=== PATIENT | female | born 1990 | race Caucasian/White ===

== ENCOUNTER → 2018-06-30 16:22 | Outpatient (CLI) | payer OTHER, SELFPAY ==
[2018-06-30 17:22] LABS: C-Reactive Protein Quant 0.8 mg/dL (<1.0)
[2018-06-30 17:29] LABS: Erythrocyte Sedimentation Rate 5 MM/HR (0-20)
== END ==
PROVIDERS: PCP Family Medicine; Visit Provider Family Medicine
DX: R51 Headache (principal)
CPT/HCPCS: 36415; 85651; 86140

== ENCOUNTER → 2018-07-11 16:12 | Outpatient (CLI) | payer OTHER, SELFPAY ==
--- NOTE | 2018-07-11 16:15 | DI.MRI.S_ITS ---
PROCEDURE: MR HEAD/BRAIN WO/W CON INDICATIONS: HEADACHES TECHNIQUE: Noncontrast axial T1 spin echo, axial T2 fast spin echo, sagittal and axial FLAIR, coronal T2 fast spin echo, axial gradient echo, axial diffusion and ADC through the brain. After the administration of contrast, axial and coronal 3D VIBE or T1 spin echo with fat saturation through the brain. COMPARISON: None. FINDINGS: Image quality: Excellent. CSF Spaces: Basal cisterns are patent. No extra-axial fluid collections. Ventricles are normal in size and shape. Brain: No midline shift. No intracranial bleeds or masses. No abnormal intracranial enhancement. The brainstem appears normal. Diffusion-weighted images demonstrate no acute ischemic insults. No chronic ischemic insults. Normal intravascular flow voids are present. Skull and face: Calvarial marrow is normal in signal. Orbits appear normal. Sinuses: Sinuses and mastoids appear clear. IMPRESSION: 1. No acute intracranial process. Dictated by: Elinor Zamora M.D. on 07/11/2018 at 16:55 Approved by: Elinor Zamora M.D. on 07/11/2018 at 16:58
== END ==
PROVIDERS: PCP Family Medicine; Visit Provider Family Medicine
DX: R51 Headache (principal)
CPT/HCPCS: 70553

== ENCOUNTER → 2019-07-12 07:29 | Outpatient (CLI) | payer OTHER, SELFPAY ==
--- NOTE | 2019-07-12 | DI.US.S_ITS ---
PROCEDURE: US ABDOMEN COMPLETE INDICATIONS: PAIN TECHNIQUE: Real-time scanning was performed of the abdominal and retroperitoneal organs, with image documentation. COMPARISON: None. FINDINGS: Liver: Liver is normal in size and homogeneous in echotexture. Gallbladder: No gallstones identified. Normal gallbladder wall. No pericholecystic fluid. Negative sonographic Maharaj sign. Biliary ducts: Intrahepatic bile ducts are non-dilated. Extrahepatic bile duct caliber measures 3.2 mm. Normal is 6-7 mm or less in diameter, or 10 mm or less post-cholecystectomy. Pancreas: Visualized portions of the pancreas are sonographically normal. Spleen: Spleen is normal in size and homogeneous in echotexture. Kidneys: Kidneys are normal in size and echotexture. Right kidney measures 11.8 cm long; left kidney measures 11.8 cm long. No hydronephrosis. 5 mm nonobstructing mid pole right renal calcification. No solid masses. Aorta: Visualized aorta is normal in caliber at less than 3 cm. Iliacs: Proximal common iliac arteries are normal in caliber at less than 2.5 cm. IVC: Intrahepatic inferior vena cava is patent. Miscellaneous: No free abdominal fluid. IMPRESSION: 1. 5 mm nonobstructing right renal calcification; otherwise no source for abdominal pain identified. Dictated by: Shawn Warner RRA Interpreted: Dena Carroll MD on 07/13/2019 at 9:25 Approved by: Dena Carroll MD, PhD on 07/13/2019 at 9:55
== END ==
PROVIDERS: PCP Family Medicine; Visit Provider Family Medicine
DX: R10.9 Unspecified abdominal pain (principal); N20.0 Calculus of kidney
CPT/HCPCS: 76700

== ENCOUNTER → 2020-06-07 11:26 | Outpatient (CLI) | payer OTHER, SELFPAY ==
--- NOTE | 2020-06-07 | DI.US.S_ITS ---
PROCEDURE: US OB <= 14 WEEKS FETUS INDICATIONS: INITIAL SIZING AND DATING OUTSIDE/PRIOR DATING DATA: Last menstrual period (LMP): Not available. LMP-based estimated date of delivery (ANDREW): Not available . First dating scan (date and location): This study, 06/07/20 . Estimated date of delivery (ANDREW) from first dating scan: 01/23/21 . TECHNIQUE: Real-time scanning was performed of the fetus and maternal pelvic organs, with image documentation. Endovaginal scanning was also performed to better visualize the fetus and maternal ovaries. COMPARISON: None. FINDINGS: Embryo: [place]-rump length 1 cm, correlated with a gestational age of 7 weeks 1 day. Measurement variability in dating: +/- 4 weeks by LMP, +/- 7 days by mean sac diameter (use before 6 weeks gestation if crown-rump length not able to be measured), +/- 5 days by crown-rump length (up to 8 weeks 6 days gestation), +/- 7 days by crown-rump length (up to 13 weeks 6 days gestation). Heart rate is normal at 149 beats per minute. Maternal organs: Ovaries normal considering gestational status. Limited images through the kidneys demonstrate no hydronephrosis. IMPRESSION: 7 week 1 day gestational age with delivery date projected to be centered on 01/23/21. Follow-up anatomic survey is recommended at 20 weeks gestation. Dictated by: Jean Claude Tony M.D. on 06/07/2020 at 13:29 Approved by: Jean Claude Tony M.D. on 06/07/2020 at 13:32
== END ==
PROVIDERS: PCP Family Medicine; Referring Provider Family Medicine; Visit Provider Family Medicine
DX: Z36.87 Encounter for antenatal screening for uncertain dates (principal); Z3A.01 Less than 8 weeks gestation of pregnancy
CPT/HCPCS: 76801

== ENCOUNTER → 2020-07-22 15:43 | Outpatient (CLI) | payer OTHER, SELFPAY ==
--- NOTE | 2020-07-22 | DI.US.S_ITS ---
PROCEDURE: US OB <= 14 WEEKS FETUS INDICATIONS: VAGINAL BLEEDING OUTSIDE/PRIOR DATING DATA: Last menstrual period (LMP): Not available. LMP-based estimated date of delivery (ANDREW): Not available . First dating scan (date and location): 06/07/20 . Estimated date of delivery (ANDREW) from first dating scan: 01/23/21 . TECHNIQUE: Real-time scanning was performed of the fetus and maternal pelvic organs, with image documentation. Endovaginal scanning was also performed to better visualize the fetus and maternal ovaries. COMPARISON: [facility], OB <= 14 WEEKS FETUS, 06/07/2020, 11:54. FINDINGS: Embryo: The fetus shows appropriate interval growth with current estimated gestational age of 13 weeks 3 days and with cardiac activity of 169 beats per minute. The placenta appears fundal. No placental abruption or abnormality at the cervix is found with a cervical length normal at 3.8 cm. Measurement variability in dating: +/- 4 weeks by LMP, +/- 7 days by mean sac diameter (use before 6 weeks gestation if crown-rump length not able to be measured), +/- 5 days by crown-rump length (up to 8 weeks 6 days gestation), +/- 7 days by crown-rump length (up to 13 weeks 6 days gestation). Maternal organs: Ovaries appear normal considering gestational status . Limited images through the kidneys demonstrate no hydronephrosis. IMPRESSION: Source of vaginal bleeding is not seen. cardiac activity is observed and no placenta previa or evidence of placental abruption is found. A perigestational hemorrhage is not seen. Dictated by: Jean Claude Tony M.D. on 07/22/2020 at 16:41 Approved by: Jean Claude Tony M.D. on 07/22/2020 at 16:43
== END ==
PROVIDERS: PCP Family Medicine; Referring Provider Family Medicine; Visit Provider Family Medicine
DX: O20.9 Hemorrhage in early pregnancy, unspecified (principal); Z3A.13 13 weeks gestation of pregnancy
CPT/HCPCS: 76801; 76817

== ENCOUNTER → 2020-09-02 14:03 | Outpatient (CLI) | payer OTHER, SELFPAY ==
--- NOTE | 2020-09-02 | DI.US.S_ITS ---
PROCEDURE: US OB >= 14 WEEKS FETUS INDICATIONS: ANATOMY SCAN OUTSIDE/PRIOR DATING DATA: Last menstrual period (LMP): Not available. LMP-based estimated date of delivery (ANDREW): Not available . First dating scan (date and location): 06/07/20 . Estimated date of delivery (ANDREW) from first dating scan: 01/23/21 . TECHNIQUE: Real-time scanning was performed of the fetus, with image documentation and biometric measurements. Endovaginal scanning: Not needed COMPARISON: None. FINDINGS: General: A single living intrauterine gestation is present. Presentation: Vertex. Placenta: Placental position is left fundal , without previa. Amniotic fluid index: 15.2 cm, normal range is 5-24 cm. heart rate: 155 beats per minute. Maternal cervical canal: 3.2 cm long. Normal lower limit is 2.5 cm. biometrics: Biparietal diameter: 4.5 cm, 19 weeks 5 days Head circumference: 7.9 cm, 20 weeks 2 days Abdominal circumference: 15.0 cm, 20 weeks 3 days Femur length: 3.1 cm, 19 weeks 3 days Estimated gestational age from initial scan: 19 weeks 4 days Composite gestational age from present scan: 20 weeks 0 days Estimated weight and percentile: 320 g, 65th percentile Measurement variability for biometric dating: +/- 7 days from 14 weeks to 15 weeks 6 days gestation, +/- 10 days from 16 weeks to 21 weeks 6 days gestation, +/- 2 weeks from 22 weeks to 27 weeks 6 days gestation, +/- 3 weeks for 28 weeks gestation or later. weight reference: 4500 g or EFW >90/95% is considered macrosomia or large for gestational age. EFW <10% is small for gestational age. EFW 5% or less is considered intra-uterine growth restriction. Anatomic survey: Neuro: Ventricles are non-dilated at less than 10 mm. Cisterna magna is normal at 3-11 mm. Cerebellum is normal in size and morphology. Nuchal skin fold: Normal at less than 6 mm between 14-21 weeks gestational age. Face: Nose and lips, facial profile are normal. Spine: No evidence for spina bifida. Heart: 4-chambered heart is present, with normal ventricular outflow tracts. Diaphragm: Diaphragm is intact. Stomach: Left-sided stomach is present. Kidneys: No hydronephrosis. Normal is less than 5 mm in 2nd trimester, less than 7 mm in 3rd trimester. Cord: 3-vessel cord has orthotopic insertion. Bladder: Normal in size. Extremities: All 4 extremities identified. IMPRESSION: Appropriate interval growth, no anomaly seen. The delivery date is projected to be centered on 01/23/21. Dictated by: Jean Claude Tony M.D. on 09/02/2020 at 16:03 Approved by: Jean Claude Tony M.D. on 09/02/2020 at 16:06
== END ==
PROVIDERS: PCP Family Medicine; Referring Provider Family Medicine; Visit Provider Family Medicine
DX: Z36.89 Encounter for other specified antenatal screening (principal); Z3A.20 20 weeks gestation of pregnancy
CPT/HCPCS: 76811

== ENCOUNTER → 2020-12-23 16:14 | Outpatient (ROUT) | payer OTHER, SELFPAY | PROVIDERS: PCP Family Medicine; Visit Provider Family Medicine | DX: Z34.90 Encounter for supervision of normal pregnancy, unspecified, unspecified trimester (principal) | CPT/HCPCS: 87081 ==

== ENCOUNTER 2021-01-20 07:22 | Inpatient (IN) | payer OTHER, SELFPAY ==
--- NOTE | 2021-01-20 08:10 | PM.OBHP.1 ---
OB HPI Date/Time Date of admission: 01/20/21 Date Patient Seen: 01/20/21 Time Patient Seen: 08:11 History of Present Condition Chief complaint: LABOR : 2 Para: 1 Estimated Date of Delivery: 01/23/21 Estimated Gestational Age (weeks): 39 4/7 Narrative: Mara Valdovinos is a 30 year old female with EDC of 520 with good dates. Early care. No major issues. Lab work was all within normal limits. Patient has the last 2 weeks had increasing blood pressure and increasing weight. Preeclampsia labs have been all normal. Patient has been on bed breast the last 10 days. Baby has been moving good. Growth has been good. No other major issues. She has not had any symptoms or complaints. Patient has had intermittent contractions but nothing specific. No leaking fluid no bleeding. She is being brought in today for induction for increasing blood pressure but no other changes. Indications Indication for induction OB: medical complication History of Present care: good care Dating criteria: LMP confirmed by 1st trimester US Ultrasounds: normal mid trimester US Obstetrical complications: gestational hypertension Medical complications: none Preadmission Labs Blood type: O (+) positive -: Antibody screen: negative, Cystic fibrosis screen: unknown, GBS status: negative, HBsAG: negative, HIV: negative, HSV 1: negative, HSV 2: negative and RPR/VDLR: negative -: Chlamydia screen: not detected and Gonorrhea screen: not detected -: Rubella: immune and Varicella: immune HCT: 36 HCAB: negative PAP: Normal Cell-free DNA: Normal male 1 hr GTT: 113 Prior (ies) History: [id number] weeks and SCD 8 hour labor epidural female 6 lb Evaluation Evaluation Baseline heart rate: 140 Status: Category l Cervical dilation (cm): 3 Cervical effacement (%): 80 station: -1 [facility] Social History Smoking Status: Never smoker Meds Home Medications and Allergies Home Medications Medication Instructions Recorded Confirmed Type Complete 1 tab PO DAILY 01/20/21 01/20/21 History lansoprazole 30 mg PO BID 01/20/21 01/20/21 History Allergies Allergy/AdvReac Type Severity Reaction Status Date / Time Sulfa (Sulfonamide Allergy Unknown Verified 01/20/21 07:51 Antibiotics) Exam Vital Signs (past 8 hours): Alert female no acute distress lungs are clear. Heart regular rate and rhythm. Gravid. Vertex. Estimated weight 8 lb. Extremities normal neurologic exam unremarkable no edema Assessment and Plan Assessment and Plan Assessment and Plan narrative: 394 7th week intrauterine see with history of gestational hypertension overall doing well. Here for induction. Will rupture and start Pitocin. Epidural when interested. Prepare for vaginal delivery
[2021-01-20] MEDS: LACTATED RINGERS 1,000 ML 125 ML IV (08:15)
--- NOTE | 2021-01-20 08:29 | P.PCN_ITS ---
Procedures Date/Time Date of procedure: 01/20/21 Time of procedure: 08:29 General Procedure description: After oral consent was given, AROM was undertaken without complications. Clear fluid. Patient tolerated well. heart monitor con tinues to be category 1 Complications: none
[2021-01-20] MEDS: OXYTOCIN PREMIX 30 UNIT/500 ML PLAST..BAG IV (08:44)
[2021-01-20 08:52] LABS: Add Manual Diff / Slide Review NO; Basophils Absolute Auto 100 /uL (0-100); Basophils Percent Auto 0.5 % (0-2); Eosinophils Absolute Auto 100 /uL (0-450); Eosinophils Percent Auto 0.6 % (2-4); Hematocrit 36.1 % (36-46); Hemoglobin 12.4 g/dL (12.0-16.0); Lymphocytes Absolute Auto 2900 /uL (1100-4500); Mean Corpuscular HGB Conc 34.4 % (30-36); Mean Corpuscular Hemoglobin 31.6 PG (26-34); Mean Corpuscular Volume 91.9 fL (80-100); Monocytes Absolute Auto 900 /uL (0-900); Monocytes Percent Auto 7.7 % (3-14); Neutrophils Absolute Auto 7700 /uL (1500-7000); Neutrophils Percent Auto 66.2 % (50-75); Platelet Count 183 X10^3/uL (150-400); Red Blood Cell Count 3.93 X10^6/uL (4.0-5.2); Red Cell Distribution Width 14.4 % (11.6-14.8); White Blood Cell Count 11.6 X10^3/uL (4.5-11.0)
[2021-01-20 09:18] LABS: COVID19 - ADMIT (NP swab/PCR) Negative (Negative)
[2021-01-20 09:28] LABS: Add Manual Diff / Slide Review NO; Basophils Absolute Auto 100 /uL (0-100); Basophils Percent Auto 0.6 % (0-2); Eosinophils Absolute Auto 100 /uL (0-450); Eosinophils Percent Auto 0.5 % (2-4); Hematocrit 36.4 % (36-46); Hemoglobin 12.5 g/dL (12.0-16.0); Lymphocytes Absolute Auto 2800 /uL (1100-4500); Lymphocytes Percent Auto 23.9 % (25-40); Mean Corpuscular HGB Conc 34.3 % (30-36); Mean Corpuscular Hemoglobin 31.6 PG (26-34); Mean Corpuscular Volume 92.2 fL (80-100); Monocytes Absolute Auto 900 /uL (0-900); Monocytes Percent Auto 7.6 % (3-14); Neutrophils Absolute Auto 7900 /uL (1500-7000); Neutrophils Percent Auto 67.4 % (50-75); Platelet Count 190 X10^3/uL (150-400); Red Blood Cell Count 3.95 X10^6/uL (4.0-5.2); Red Cell Distribution Width 14.6 % (11.6-14.8); White Blood Cell Count 11.8 X10^3/uL (4.5-11.0)
[2021-01-20 11:23] VITALS: BP 138/86
--- NOTE | 2021-01-20 12:52 | PM.OBPRVD ---
Events: Induced HTN Labor & Delivery Delivery date: 01/20/21 Cervical ripening method: none Induction method: AROM Delivery augmentation: pitocin Delivery monitor: external FHT Route of delivery: L&D Laceration Description: Perineal - 2nd Degree Delivery repair: chromic Estimated blood loss (mL): 200 Anesthesia Type: Local Narrative: Patient was brought in for elevated blood pressure her blood pressure during labor was mildly elevated but nothing significant. She was feeling well. Having no contractions on leaking fluid no bleeding no pain. Good movement. She had rupture of membranes with clear fluid. No other changes. heart monitor was category 1 throughout the entire labor process. She had Pitocin began and was very comfortable throughout the course of for stage. She then was found to be complete and +2. Second-stage began and was very rapid 3 pushes. Baby delivered OA over second-degree midline tear. Nuchal cord x1 which was slipped. Baby then delivered up onto the abdomen. Slightly shocky but no resuscitation then began crying aggressively. Cord bloods were obtained. Placenta delivered spontaneous intact 3 vessels. Pitocin was then ran and will be stopped when bag is empty. Repair was done with 1% lidocaine local anesthesia and then running 4-0 chromic. EBL 200 cc. Mother and were in stable condition.
[2021-01-20] MEDS: IBUPROFEN 600 MG TABLET PO ×2 (13:35→20:00)
[2021-01-20] MEDS: METHYLERGONOVINE 0.2 MG TABLET PO ×2 (15:18→21:13)
[2021-01-20] MEDS: miSOPROStoL 200 MCG TABLET 400 MCG SL (15:18)
[2021-01-20] MEDS: LANOLIN OINT 7 GM 1 APPLIC TOP (17:29)
[2021-01-20] MEDS: DERMOPLAST SPRAY 20% 60 ML 1 SPRAY TOP (17:30)
[2021-01-20] MEDS: ACETAMINOPHEN 325 MG TABLET 650 MG PO (20:00)
[2021-01-21] MEDS: ACETAMINOPHEN 325 MG TABLET 650 MG PO ×2 (03:00→09:17)
[2021-01-21] MEDS: IBUPROFEN 600 MG TABLET PO ×2 (03:01→09:18)
[2021-01-21] MEDS: METHYLERGONOVINE 0.2 MG TABLET PO ×2 (03:01→09:17)
[2021-01-21 06:10] LABS: Hematocrit 32.3 % (36-46); Hemoglobin 10.8 g/dL (12.0-16.0)
--- NOTE | 2021-01-21 08:42 | P.DS_ITS ---
Discharge Providers Provider Date of admission: 01/20/21 07:22 Discharge Date: 01/21/21 Primary care physician: Tung Cai MD Consults: 01/21/21 12:50 Consult to Plumber Cub Routine Comment: Discharge provider: Tung Cai MD Summary Hospital Course Date Patient Seen: 01/21/21 Time Patient Seen: 08:42 Diagnoses: 39+ week intrauterine with mild hypertension delivered Hospital Course: Patient recovered from delivery and was transferred to room. She was having some difficulty urinating. Her blood pressure has been excellent having no issues. She had slight increased bleeding after delivery and Methergine and Cytotec were given. Excellent results. No other change. Patient has been feeling well otherwise. Urinating well. Bleeding has been minimal. Pain is well controlled with Tylenol and ibuprofen. Has no other complaint or problem. Breast-feeding seems to be going well. She feels comfortable without period has no other changes and is requesting to go home Peripartum Data Infant Delivery Method: Natural Vaginal Laceration Description: None and Perineal - 2nd Degree complications: none Status at Discharge Cognitive/behavioral status at discharge: oriented Functional status at discharge: independent ambulation Overall status at discharge: patient is progressing back to baseline Time Spent with Patient Time attestation: Total time spent providing and/or coordinating discharge services: Time spent: Greater than 30 minutes Objective Labs Result Diagrams: 01/21/21 05:47 Labs: Laboratory Results - last 24 hr 01/20/21 01/20/21 01/20/21 08:15 08:15 08:15 WBC 11.6 H 11.8 H RBC 3.93 L 3.95 L Hgb 12.4 12.5 Hct 36.1 36.4 MCV 91.9 92.2 MCH 31.6 31.6 MCHC 34.4 34.3 RDW 14.4 14.6 Plt Count 183 190 Neut % (Auto) 66.2 67.4 Lymph % (Auto) 25.0 23.9 L [place] % (Auto) 7.7 7.6 Eos % (Auto) 0.6 L 0.5 L Baso % (Auto) 0.5 0.6 Neut # (Auto) 7700 H 7900 H Lymph # (Auto) 2900 2800 [place] # (Auto) 900 900 Eos # (Auto) 100 100 Baso # (Auto) 100 100 SARS-CoV-2 (PCR) Blood Type O Positive Antibody Screen Negative 01/20/21 01/21/21 08:55 05:47 WBC RBC Hgb 10.8 L Hct 32.3 L MCV MCH MCHC RDW Plt Count Neut % (Auto) Lymph % (Auto) [place] % (Auto) Eos % (Auto) Baso % (Auto) Neut # (Auto) Lymph # (Auto) [place] # (Auto) Eos # (Auto) Baso # (Auto) SARS-CoV-2 (PCR) Negative Blood Type Antibody Screen Exam Narrative Exam Narrative: Alert female in no acute distress. Mildly fatigued. Mucous membranes moist. Neck supple without adenopathy. Lungs are clear. Heart regular rate and rhythm. Abdomen is soft uterus is firm. Extremities without cyanosis clubbing 1+ edema. Neurologic exam is normal. Skin is without rash. Discharge Plan Discharge Plan Patient Disposition: Home Discharge orders & Medications Prescriptions: New acetaminophen 325 mg Tablet 650 mg PO Q6HR PRN (Reason: Pain, Mild (1-3)) Qty: 90 RF: 0 ibuprofen 600 mg Tablet 600 mg PO Q6HR PRN (Reason: Pain, Mild (1-3)) Qty: 1 RF: 0 Clf-H-Kpnool Cream 1 applic topical PRN PRN (Reason: Tenderness) Qty: 9 RF: 0 Continued Complete 1 tab PO DAILY RF: 0 lansoprazole 30 mg capsule,delayed release(DR/EC) 30 mg PO BID RF: 0 Follow up/Referrals: Tung Cai MD [Primary Care Provider] - 6 Weeks Discharge Health Status Health Concerns: None Multidrug resistant organism: No MDRO Diet/Activity/Treatments Diet: Diet as Tolerated Activity: No sexual activity for 6 weeks. Skin/Wound/Dressing Care Report to your healthcare provider any signs of infection, such as:: chills, fever, night sweats and increased pain Discharge Data Primary Care Provider: Tung Cai
[2021-01-21 08:50] VITALS: BP 138/86; PULSE 80; RESP 16; TEMP 36.3
[2021-01-21] MEDS: PRENATAL VIT,CALC/IRON/FOLIC 1 TABLET 1 TAB PO (09:17)
== END 2021-01-21 11:45 | disposition home or self-care (01) | DRG 807 ==
PROVIDERS: Admitting Provider Family Medicine; PCP Family Medicine; Referring Provider Family Medicine; Visit Provider Family Medicine
DX: O13.4 Gestational [pregnancy-induced] hypertension without significant proteinuria, complicating childbirth (principal); Z37.0 Single live birth; Z3A.39 39 weeks gestation of pregnancy; O70.1 Second degree perineal laceration during delivery; Z20.822 Contact with and (suspected) exposure to COVID-19
CPT/HCPCS: 36415; 59050; 85014; 85018; 85025; 86850; 86900; 86901; 87635; C9803; G0379; J2590; S0191

== ENCOUNTER → 2021-08-11 09:19 | Outpatient (CLI) | payer OTHER, SELFPAY ==
--- NOTE | 2021-08-11 | DI.RAD.S_ITS ---
PROCEDURE: XR KNEE RT 3V INDICATIONS: right knee pain TECHNIQUE: 3 views of the knee were acquired. COMPARISON: [facility], , KNEE 3V RIGHT, 02/03/2017, 10:24. FINDINGS: Bones: No fractures or dislocations. No suspicious bony lesions. Soft tissues: Small to moderate suprapatellar joint effusion is seen.. No suspicious soft tissue calcifications. IMPRESSION: Small to moderate joint effusion. No fracture or dislocation. No patellar subluxation. If indicated, MRI of knee can be done for evaluation of internal derangement. Dictated by: Walker Baron M.D. on 08/11/2021 at 11:11 Approved by: Walker Baron M.D. on 08/11/2021 at 11:12
== END ==
PROVIDERS: PCP Family Medicine; Referring Provider Family Medicine; Visit Provider Family Medicine
DX: M25.561 Pain in right knee (principal); M25.461 Effusion, right knee
CPT/HCPCS: 73562

== ENCOUNTER → 2022-11-06 13:11 | Outpatient (CLI) | payer OTHER, SELFPAY ==
--- NOTE | 2022-11-06 | DI.US.S_ITS ---
PROCEDURE: US OB <= 14 WEEKS FETUS INDICATIONS: SIZE AND DATES OUTSIDE/PRIOR DATING DATA: Last menstrual period (LMP): 08/29/2022. LMP-based estimated date of delivery (ANDREW): 06/05/2023. First dating scan (date and location): Today. Estimated date of delivery (ANDREW) from first dating scan: 06/13/2023. The calculations are made using the clinical ANDREW of 06/05/2023. TECHNIQUE: Real-time scanning was performed of the fetus and maternal pelvic organs, with image documentation. COMPARISON: [facility], , OB <= 14 WEEKS FETUS, 07/22/2020, 16:05. FINDINGS: Embryo: Intrauterine . [place]-rump length measures 2.2 cm, corresponding to 8 weeks 6 days. Yolk sac is visualized. No perigestational fluid. Heart rate: 163 Maternal organs: Ovaries are unremarkable. IMPRESSION: Single living intrauterine at 8 weeks 5 days, corresponding to ANDREW of 06/13/2023. We strive to produce accurate, complete, and clear reports of imaging services. To assist us in improving patient care, this report was composed using standard report templates and voice recognition software. Therefore, it may contain abnormal punctuation, insertions and/or omissions. Occasional wrong-word or sound-alike substitutions may occur. Though we review the report and make efforts to correct it, we do recommend that the report be read carefully in proper context to recognize any text inaccuracies. Dictated by: Alvin Vogel M.D. on 11/06/2022 at 15:07 Approved by: Alvin Vogel M.D. on 11/06/2022 at 15:14
== END ==
PROVIDERS: PCP Family Medicine; Referring Provider Family Medicine; Visit Provider Family Medicine
DX: Z34.81 Encounter for supervision of other normal pregnancy, first trimester (principal); Z3A.08 8 weeks gestation of pregnancy
CPT/HCPCS: 76801; 76817

== ENCOUNTER → 2023-02-05 16:13 | Outpatient (CLI) | payer OTHER, SELFPAY ==
--- NOTE | 2023-02-05 16:16 | DI.US.S_ITS ---
PROCEDURE: US OB >= 14 WEEKS FETUS INDICATIONS: anatomy screening OUTSIDE/PRIOR DATING DATA: Last menstrual period (LMP): 08/29/2022. LMP-based estimated date of delivery (ANDREW): 06/05/2023. TECHNIQUE: Real-time scanning was performed of the fetus, with image documentation and biometric measurements. COMPARISON: [facility], , OB >= 14 WEEKS FETUS, 09/02/2020, 14:26. FINDINGS: General: A single living intrauterine gestation is present. Presentation: Breech Placenta: Placental position is anterior fundal, without previa. Amniotic fluid index: 19.8 cm, normal range is 5-24 cm. Single deepest vertical pocket is 6.1 cm. heart rate: 165 beats per minute. Maternal cervical canal: 3.4 cm long. Normal lower limit is 2.5 cm. biometrics: Biparietal diameter: 5.4 cm. 22 weeks 3 days Head circumference: 19.7 cm. 21 weeks 6 days Abdominal circumference: 17.6 cm. 22 weeks 4 days Femur length: 3.9 cm. 22 weeks 2 days Clinically estimated gestational age: 22 weeks 1 day Composite gestational age from present scan: 22 weeks 1 day Estimated weight and percentile: 480 g. Anatomic survey: Neuro: Ventricles are non-dilated at less than 10 mm. Cisterna magna is normal at 3-11 mm. Cerebellum is normal in size and morphology. Nuchal skin fold: Normal at less than 6 mm between 14-21 weeks gestational age. Face: Nose and lips, facial profile are normal. Spine: No evidence for spina bifida. Heart: 4-chambered heart is present, with normal ventricular outflow tracts. Diaphragm: Diaphragm is intact. Stomach: Left-sided stomach is present. Kidneys: No hydronephrosis. Normal is less than 5 mm in 2nd trimester, less than 7 mm in 3rd trimester. Cord: 3-vessel cord has orthotopic insertion. Bladder: Normal in size. Extremities: All 4 extremities identified. IMPRESSION: 1. Single living IUP with an estimated gestational age 22 weeks 1 day. 2. Normal anatomy We strive to produce accurate, complete, and clear reports of imaging services. To assist us in improving patient care, this report was composed using standard report templates and voice recognition software. Therefore, it may contain abnormal punctuation, insertions and/or omissions. Occasional wrong-word or sound-alike substitutions may occur. Though we review the report and make efforts to correct it, we do recommend that the report be read carefully in proper context to recognize any text inaccuracies. Dictated by: Luisito iRck M.D. on 02/06/2023 at 7:06 Approved by: Luisito Rick M.D. on 02/06/2023 at 7:11
== END ==
PROVIDERS: PCP Family Medicine; Referring Provider Family Medicine; Visit Provider Family Medicine
DX: Z34.92 Encounter for supervision of normal pregnancy, unspecified, second trimester (principal); Z3A.22 22 weeks gestation of pregnancy
CPT/HCPCS: 76811

== ENCOUNTER → 2023-03-24 08:03 | Outpatient (CLI) | payer OTHER, SELFPAY ==
[2023-03-24 11:37] LABS: Add Manual Diff / Slide Review NO; Basophils Absolute Auto 100 /uL (0-100); Basophils Percent Auto 0.5 % (0-2); Eosinophils Absolute Auto 200 /uL (0-450); Eosinophils Percent Auto 1.9 % (2-4); Hematocrit 34.1 % (36-46); Hemoglobin 11.7 g/dL (12.0-16.0); Lymphocytes Absolute Auto 2400 /uL (1100-4500); Lymphocytes Percent Auto 20.1 % (25-40); Mean Corpuscular HGB Conc 34.2 % (30-36); Mean Corpuscular Hemoglobin 31.7 PG (26-34); Mean Corpuscular Volume 92.8 fL (80-100); Monocytes Absolute Auto 800 /uL (0-900); Monocytes Percent Auto 6.4 % (3-14); Neutrophils Absolute Auto 8400 /uL (1500-7000); Neutrophils Percent Auto 71.1 % (50-75); Platelet Count 191 X10^3/uL (150-400); Red Blood Cell Count 3.68 X10^6/uL (4.0-5.2); Red Cell Distribution Width 13.5 % (11.6-14.8); White Blood Cell Count 11.8 X10^3/uL (4.5-11.0)
[2023-03-24 11:53] LABS: GTT (PREG) 1 Hour PP 50gm Dose 108 mg/dL (76-139)
== END ==
PROVIDERS: PCP Family Medicine; Referring Provider Family Medicine; Visit Provider Family Medicine
DX: Z34.82 Encounter for supervision of other normal pregnancy, second trimester (principal); Z3A.28 28 weeks gestation of pregnancy
CPT/HCPCS: 36415; 82950; 85025

== ENCOUNTER 2023-05-04 16:06 | Observation (INO) | payer OTHER, SELFPAY ==
[2023-05-04 16:42] LABS: Appearance Urine UA CLEAR; Bilirubin Urine UA NEGATIVE (NEGATIVE); Color Urine UA YELLOW; Glucose Urine UA NEGATIVE (Negative); Ketones Urine UA NEGATIVE (NEGATIVE); Leukocyte Esterase Urine UA NEGATIVE (NEGATIVE); Nitrite Urine UA NEGATIVE (Negative); Occult Blood Urine UA NEGATIVE (Negative); Protein Urine UA NEGATIVE (Negative); Specific Gravity Urine UA <=1.005 (1.000-1.035); Urobilinogen Urine UA 0.2 E.U./dL (0.2); pH Urine UA 6.5 (4.5-8.0)
[2023-05-04 16:58] LABS: Bacteria Urine None Seen; Culture Indicated Urine Cult Not Indicated; RBC Urine None Seen (0-5/HPF); Squamous Epithelial Cell Urine 0-1 /HPF (0-5/HPF); WBC Urine None Seen (0-5/HPF)
[2023-05-04] MEDS: NIFEdipine 10 MG CAPSULE PO ×4 (17:24→18:29)
[2023-05-04] MEDS: NIFEdipine 30 MG TAB ER PO (18:51)
== END 2023-05-04 18:55 | disposition home or self-care (01) ==
PROVIDERS: Admitting Provider Family Medicine; PCP Family Medicine; Referring Provider Family Medicine; Visit Provider Family Medicine
DX: O60.03 Preterm labor without delivery, third trimester (principal); Z3A.34 34 weeks gestation of pregnancy
CPT/HCPCS: 59025; 59050; 81001; G0378; G0379

== ENCOUNTER 2023-05-05 12:05 | Outpatient (CLI) | payer OTHER, SELFPAY | END 2023-05-05 12:40 | disposition home or self-care (01) | LOC: LABOR 12:28 → OB 05-13 07:40 | PROVIDERS: PCP Family Medicine; Referring Provider Family Medicine; Visit Provider Family Medicine | DX: Z34.83 Encounter for supervision of other normal pregnancy, third trimester (principal); Z3A.34 34 weeks gestation of pregnancy | CPT/HCPCS: 59025; G0378; G0379 ==

== ENCOUNTER → 2023-05-07 11:30 | Outpatient (CLI) | payer OTHER, SELFPAY ==
[2023-05-08 07:39] LABS: Strep Grp B PCR NEG for Grp B Strep
== END ==
PROVIDERS: PCP Family Medicine; Visit Provider Family Medicine
DX: Z34.81 Encounter for supervision of other normal pregnancy, first trimester (principal)
CPT/HCPCS: 87653

== ENCOUNTER → 2023-05-14 15:45 | Outpatient (CLI) | payer OTHER, SELFPAY ==
[2023-05-14 17:21] LABS: Add Manual Diff / Slide Review NO; Basophils Absolute Auto 0 /uL (0-100); Basophils Percent Auto 0.3 % (0-2); Eosinophils Absolute Auto 100 /uL (0-450); Eosinophils Percent Auto 0.5 % (2-4); Hematocrit 38.2 % (36-46); Lymphocytes Absolute Auto 2600 /uL (1100-4500); Lymphocytes Percent Auto 23.1 % (25-40); Mean Corpuscular HGB Conc 33.9 % (30-36); Mean Corpuscular Hemoglobin 31.5 PG (26-34); Mean Corpuscular Volume 92.9 fL (80-100); Monocytes Absolute Auto 900 /uL (0-900); Monocytes Percent Auto 7.4 % (3-14); Neutrophils Absolute Auto 7900 /uL (1500-7000); Neutrophils Percent Auto 68.7 % (50-75); Platelet Count 204 X10^3/uL (150-400); Red Blood Cell Count 4.12 X10^6/uL (4.0-5.2); Red Cell Distribution Width 13.6 % (11.6-14.8); White Blood Cell Count 11.5 X10^3/uL (4.5-11.0)
[2023-05-14 17:26] LABS: Alanine Aminotransferase 11 IU/L (<35); Albumin 3.7 g/dL (3.5-5.0); Albumin Globulin Ratio 1.2 (1.0-2.8); Alkaline Phosphatase 143 U/L (38-126); Aspartate Aminotransferase 20 IU/L (14-36); Bilirubin Total 0.2 mg/dL (0.2-1.3); Blood Urea Nitrogen 8 mg/dL (7-17); Calcium 9.2 mg/dL (8.4-10.2); Carbon Dioxide 20 mmol/L (22-32); Chloride 106 mmol/L (98-107); Estimated Glomerular Filt Rate > 60 mL/min (>60); Globulin 3.1 g/dL (1.7-4.1); Glucose 97 mg/dL (70-100); HEMOLYSIS < 15 (0-50); Potassium 3.8 mmol/L (3.4-5.1); Sodium 134 mmol/L (137-145); Total Protein 6.8 g/dL (6.3-8.2)
[2023-05-14 17:50] LABS: Creatinine Urine Random 17.7 mg/dL; Protein (Total) Urine Random 15 mg/dL (0-12); Protein Creatinine Ratio Urine 0.84 GRAM/24H
== END ==
PROVIDERS: PCP Family Medicine; Referring Provider Family Medicine; Visit Provider Family Medicine
DX: O16.3 Unspecified maternal hypertension, third trimester (principal); Z3A.00 Weeks of gestation of pregnancy not specified
CPT/HCPCS: 36415; 80053; 82570; 84156; 85025

== ENCOUNTER 2023-05-15 15:07 | Outpatient (CLI) | payer OTHER, SELFPAY | END 2023-05-15 15:57 | disposition home or self-care (01) | LOC: OB 05-17 11:55 | PROVIDERS: PCP Family Medicine; Referring Provider Family Medicine; Visit Provider Family Medicine | DX: O13.3 Gestational [pregnancy-induced] hypertension without significant proteinuria, third trimester (principal); Z3A.35 35 weeks gestation of pregnancy | CPT/HCPCS: 59025; G0378; G0379 ==

== ENCOUNTER → 2023-05-18 12:03 | Outpatient (CLI) | payer OTHER, SELFPAY ==
[2023-05-18 12:34] LABS: Add Manual Diff / Slide Review NO; Basophils Absolute Auto 100 /uL (0-100); Basophils Percent Auto 0.5 % (0-2); Eosinophils Absolute Auto 100 /uL (0-450); Eosinophils Percent Auto 0.5 % (2-4); Hematocrit 36.7 % (36-46); Hemoglobin 12.9 g/dL (12.0-16.0); Lymphocytes Absolute Auto 2400 /uL (1100-4500); Lymphocytes Percent Auto 21.3 % (25-40); Mean Corpuscular HGB Conc 35.1 % (30-36); Mean Corpuscular Hemoglobin 31.9 PG (26-34); Monocytes Absolute Auto 800 /uL (0-900); Monocytes Percent Auto 6.8 % (3-14); Neutrophils Absolute Auto 8100 /uL (1500-7000); Neutrophils Percent Auto 70.9 % (50-75); Platelet Count 195 X10^3/uL (150-400); Red Blood Cell Count 4.03 X10^6/uL (4.0-5.2); Red Cell Distribution Width 13.5 % (11.6-14.8); White Blood Cell Count 11.5 X10^3/uL (4.5-11.0)
[2023-05-18 13:03] LABS: Alanine Aminotransferase 12 IU/L (<35); Albumin 3.5 g/dL (3.5-5.0); Albumin Globulin Ratio 1.3 (1.0-2.8); Alkaline Phosphatase 151 U/L (38-126); Aspartate Aminotransferase 20 IU/L (14-36); BUN Creatinine Ratio 19.2 (6-22); Bilirubin Total 0.3 mg/dL (0.2-1.3); Blood Urea Nitrogen 10 mg/dL (7-17); Calcium 8.8 mg/dL (8.4-10.2); Carbon Dioxide 21 mmol/L (22-32); Chloride 104 mmol/L (98-107); Estimated Glomerular Filt Rate > 60 mL/min (>60); Globulin 2.7 g/dL (1.7-4.1); Glucose 117 mg/dL (70-100); HEMOLYSIS < 15 (0-50); Potassium 3.8 mmol/L (3.4-5.1); Sodium 133 mmol/L (137-145); Total Protein 6.2 g/dL (6.3-8.2)
[2023-05-18 15:08] LABS: Creatinine Urine Random 110.5 mg/dL
[2023-05-18 15:15] LABS: Protein (Total) Urine Random < 5 mg/dL (0-12); Protein Creatinine Ratio Urine 0.04 GRAM/24H
== END ==
PROVIDERS: PCP Family Medicine; Referring Provider Family Medicine; Visit Provider Family Medicine
DX: O14.90 Unspecified pre-eclampsia, unspecified trimester; O16.3 Unspecified maternal hypertension, third trimester
CPT/HCPCS: 36415; 80053; 82570; 84156; 85025

== ENCOUNTER 2023-05-18 12:58 | Outpatient (CLI) | payer OTHER, SELFPAY | END 2023-05-18 13:40 | disposition home or self-care (01) | LOC: LABOR 13:22 → OB 06-02 08:04 | PROVIDERS: PCP Family Medicine; Referring Provider Family Medicine; Visit Provider Family Medicine | DX: Z36.9 Encounter for antenatal screening, unspecified (principal); O14.93 Unspecified pre-eclampsia, third trimester; O16.3 Unspecified maternal hypertension, third trimester | CPT/HCPCS: 36415; 59025; 80053; 82570; 84156; 85025; G0378; G0379 ==

== ENCOUNTER → 2023-05-21 12:20 | Outpatient (CLI) | payer OTHER, SELFPAY ==
--- NOTE | 2023-05-21 12:21 | DI.US.S_ITS ---
PROCEDURE: US OB FOLLOW UP INDICATIONS: ELEVATED BLOOD PRESSURE, EVALUATE GROWTH AND FLUID OUTSIDE/PRIOR DATING DATA: Last menstrual period (LMP): 08/29/2022. LMP-based estimated date of delivery (ANDREW): 06/05/2023. First dating scan (date and location): 11/06/2022 Estimated date of delivery (ANDREW) from first dating scan: 06/13/2023. The calculations are made using the ultrasound ANDREW of 06/13/2023. TECHNIQUE: Real-time scanning was performed of the fetus, with image documentation. COMPARISON: None. FINDINGS: A single living intrauterine gestation is present. Fetus: [place]-rump length 2.2 cm corresponding with 8 weeks 6 days. Mean gestational sac diameter 3.4 cm corresponding with 8 weeks 4 days. Amniotic fluid index: Early heart rate: 163 beats per minute. Maternal cervical canal: 3.7 cm long. Normal lower limit is 2.5 cm. Clinically estimated gestational age: 8 weeks 5 days Estimated gestational age from initial scan: 9 weeks 6 days. IMPRESSION: Single live intrauterine measuring 8 weeks 5 days by today's ultrasound and 9 weeks 6 days by 1st ultrasound. Dictated by: Luisito Rick M.D. on 05/21/2023 at 15:35 Approved by: Luisito Rick M.D. on 05/21/2023 at 15:39
== END ==
PROVIDERS: PCP Family Medicine; Referring Provider Family Medicine; Visit Provider Family Medicine
DX: O16.3 Unspecified maternal hypertension, third trimester (principal); Z3A.37 37 weeks gestation of pregnancy
CPT/HCPCS: 76816

== ENCOUNTER 2023-05-21 12:53 | Observation (INO) | payer OTHER, SELFPAY ==
--- NOTE | 2023-05-21 13:18 | PM.OBTRLD ---
Visit Information Visit Information Date of evaluation: 05/21/23 Primary OB Provider: Merlene Barroso Comments/Additional reasons for admission: 32yo at 36w5d here for NST for gestational HTN. Pt denies any headache, vision changes, swelling, RUQ pain. She is feeling her baby move regularly. No LOF, vaginal bleeding, contractions. FOR[facility]LY [facility] Medical History (Updated 05/21/23 @ 13:20 by Merlene Barroso MD) Anxiety GERD (gastroesophageal reflux disease) labor Surgical History (Updated 01/09/23 @ 20:31 by Mirna Serrano) Anesthesia H/O endoscopy [place] teeth extracted Family History (Updated 01/09/23 @ 20:33 by Mirna Serrano) Mother Hypertension Breast cancer Father Hypertension Family/Other Diabetes mellitus Grandmother Breast cancer Hyperlipidemia Family/Other Breast cancer Family/Other Breast cancer Grandfather Dementia Kidney failure Skin cancer Hypertension Hyperlipidemia History of heart attack Grandmother Hyperlipidemia Social History marital status: number of children: 2 household members: spouse and children lives independently: Yes caregiver/support person: Yes housing: house pets and animals: Yes (1 cat, 1 dog; managing litter box) education level: college (azael's degree) occupational status: employed (office job) current occupational exposures/hazards: No special lara needs: No travel history: recent ([facility], [place]) seatbelt use: always water heater temp set < 120 deg: Yes working smoke detector in home: Yes fire extinguisher in home: Yes carbon monox detector in home: Yes firearms in home: Yes firearms unloaded and locked: Yes do you feel safe at home: Yes Smoking Status: Never smoker second hand exposure: No alcohol intake: former (2-3/week when not ) substance use type: does not use during the past year weight has: remained stable well-balanced diet: daily or most days daily servings fruits/ve or more times/day caffeine: Yes (usually AM cup of tea or coffee) Type(s) of exercise: walking Evaluation Evaluation Baseline heart rate: 130 Variability: Moderate (11-25) monitor accelerations: Present Monitor Decelerations: Absent Category of Tracing: Reactive Diagnosis, Plan/Disposition Final Diagnosis (1) Gestational hypertension: Status: Acute Plan/Disposition Plan: 32yo at 36w5d here for NST for gestational HTN. NST reactive. IOL planned for 37wks. Stable for d/c home. OB Disposition: home
== END 2023-05-21 13:25 | disposition home or self-care (01) ==
PROVIDERS: Admitting Provider Family Medicine; PCP Family Medicine; Referring Provider Family Medicine; Visit Provider Family Medicine
DX: O13.3 Gestational [pregnancy-induced] hypertension without significant proteinuria, third trimester (principal); Z3A.36 36 weeks gestation of pregnancy
CPT/HCPCS: 59025; 76816; G0378; G0379

== ENCOUNTER 2023-05-26 09:55 | Inpatient (IN) | payer OTHER, SELFPAY ==
[2023-05-26 10:46] LABS: Add Manual Diff / Slide Review NO; Basophils Absolute Auto 100 /uL (0-100); Basophils Percent Auto 0.5 % (0-2); Eosinophils Absolute Auto 100 /uL (0-450); Eosinophils Percent Auto 0.5 % (2-4); Hematocrit 36.4 % (36-46); Hemoglobin 12.7 g/dL (12.0-16.0); Lymphocytes Absolute Auto 2600 /uL (1100-4500); Mean Corpuscular HGB Conc 34.8 % (30-36); Mean Corpuscular Hemoglobin 31.9 PG (26-34); Mean Corpuscular Volume 91.6 fL (80-100); Monocytes Absolute Auto 800 /uL (0-900); Monocytes Percent Auto 7.3 % (3-14); Neutrophils Absolute Auto 7000 /uL (1500-7000); Neutrophils Percent Auto 66.7 % (50-75); Platelet Count 191 X10^3/uL (150-400); Red Blood Cell Count 3.98 X10^6/uL (4.0-5.2); Red Cell Distribution Width 13.8 % (11.6-14.8); White Blood Cell Count 10.5 X10^3/uL (4.5-11.0)
[2023-05-26] MEDS: LACTATED RINGERS 1,000 ML 100 ML IV (11:17)
[2023-05-26] MEDS: OXYTOCIN PREMIX 30 UNIT/500 ML PLAST..BAG IV (11:17)
[2023-05-26 11:24] LABS: Alanine Aminotransferase 13 IU/L (<35); Albumin 3.5 g/dL (3.5-5.0); Albumin Globulin Ratio 1.2 (1.0-2.8); Alkaline Phosphatase 167 U/L (38-126); Aspartate Aminotransferase 21 IU/L (14-36); BUN Creatinine Ratio 16.7 (6-22); Bilirubin Total 0.3 mg/dL (0.2-1.3); Blood Urea Nitrogen 8 mg/dL (7-17); Calcium 8.8 mg/dL (8.4-10.2); Carbon Dioxide 21 mmol/L (22-32); Chloride 107 mmol/L (98-107); Estimated Glomerular Filt Rate > 60 mL/min (>60); Glucose 88 mg/dL (70-100); HEMOLYSIS < 15 (0-50); Potassium 3.7 mmol/L (3.4-5.1); Sodium 133 mmol/L (137-145); Total Protein 6.5 g/dL (6.3-8.2)
[2023-05-26 11:56] LABS: Creatinine Urine Random 24.7 mg/dL; Protein (Total) Urine Random 15 mg/dL (0-12)
--- NOTE | 2023-05-26 13:25 | P.HPOB_ITS ---
OB HPI <Constance Cabello - Last Filed: 05/26/23 15:19> Date/Time Date of admission: 05/26/23 Date Patient Seen: 05/26/23 Time Patient Seen: 13:00 History of Present Condition Chief complaint: INDUCTION ANDREW Calculator Estimated Delivery Date Method Current WG Current Estimate 06/13/23 Manual 37w 3d Final ANDREW - AKILA Other Estimates 06/13/23 Ultrasound #1 37w 3d Estimated Gestational Age (weeks): 37w3d : 3 Para: 2 Narrative: Liana is a 32yo F, , who is here today for induction of labor due to gestational hypertension at 37w3d. Started pitocin and performed manual rupture of membranes at 1300. care: good care Dating criteria OB: LMP confirmed by 1st trimester US Ultrasounds: normal 1st trimester US Obstetrical complications: gestational hypertension Medical complications OB: none Indications Indication for induction OB: gestational HTN/pre-eclampsia Preadmission Labs Last OB Lab Results: Blood Type O Positive 05/26/23 10:40 Antibody Screen Negative 05/26/23 10:40 Hematocrit 36.4 % (36-46) 05/26/23 10:38 Hemoglobin 12.7 g/dL (12.0-16.0) 05/26/23 10:38 Glucose 1 Hour 108 mg/dL (76-139) 03/24/23 08:27 Group B Streptococcus (PCR) Neg for grp b strep 05/07/23 11:30 Glucose Tolerance Testin hr -: Chlamydia screen: negative, Gonorrhea screen: negative and Urine: negative External Labs -: Urine: negative Prior (ies) Past Pregnancies Del. Date GA/Weeks Labor Lgth Wt Sex Route Outcome Anesthesia Place Delv Breastfeed Preg Comp Name 01/05/09 36+ 5 lb 6 oz Female vaginal live - I H 1 year labor delivery Nanci 01/20/21 39 7 lb 12 oz Male vaginal live - full term IH 13 months induced hyper- Robert <Merlene Barroso MD - Last Filed: 05/26/23 16:23> History of Present Condition Narrative: Liana is a 32yo F, , who is here today for induction of labor due to gestational hypertension at 37w3d. She is feeling her baby move regularly. No LOF, vaginal bleeding, contractions. was complicated by contractions on PO Nifedipine for management and gestational HTN diagnosed at 36 weeks. Pre-eclampsia based on protein/creatinine ratio obtained today. Dating criteria OB: based on 1st trimester US only Evaluation <Constance Cabello - Last Filed: 05/26/23 15:19> Evaluation Dilation (cm): 3 Effacement (%): 90 station: -2 <Merlene Barroso MD - Last Filed: 05/26/23 16:23> Evaluation Baseline heart rate: 140 Variability: Moderate (11-25) monitor accelerations: Present Monitor Decelerations: Absent Contraction Frequency (minutes): 2 Status: Category l PFSH <Constancejed Medelson - Last Filed: 05/26/23 15:19> Medical History (Updated 05/21/23 @ 16:26 by Merlene Barroso MD) Anxiety GERD (gastroesophageal reflux disease) labor Surgical History (Updated 01/09/23 @ 20:31 by Mirna Serrano) Anesthesia H/O endoscopy [place] teeth extracted Family History (Updated 01/09/23 @ 20:33 by Mirna Serrano) Mother Hypertension Breast cancer Father Hypertension Family/Other Diabetes mellitus Grandmother Breast cancer Hyperlipidemia Family/Other Breast cancer Family/Other Breast cancer Grandfather Dementia Kidney failure Skin cancer Hypertension Hyperlipidemia History of heart attack Grandmother Hyperlipidemia Social History marital status: number of children: 2 household members: spouse and children lives independently: Yes caregiver/support person: Yes housing: house pets and animals: Yes (1 cat, 1 dog; managing litter box) education level: college (azael's degree) occupational status: employed (office job) current occupational exposures/hazards: No special lara needs: No travel history: recent (Domestic, [place]) seatbelt use: always water heater temp set < 120 deg: Yes working smoke detector in home: Yes fire extinguisher in home: Yes carbon monox detector in home: Yes firearms in home: Yes firearms unloaded and locked: Yes do you feel safe at home: Yes Smoking Status: Never smoker second hand exposure: No alcohol intake: former (2-3/week when not ) substance use type: does not use during the past year weight has: remained stable well-balanced diet: daily or most days daily servings fruits/ve or more times/day caffeine: Yes (usually AM cup of tea or coffee) Type(s) of exercise: walking Meds <Constance Cabello - Last Filed: 05/26/23 15:19> Home Medications and Allergies Home Medications Medication Instructions Recorded Confirmed Type Complete 1 tab PO DAILY 01/20/21 05/26/23 History lansoprazole 30 mg capsule,delayed 30 mg PO BID 01/20/21 05/26/23 History release nifedipine 30 mg tablet,extended 30 mg PO BID #60 tabs 05/19/23 05/26/23 Rx release Allergies Allergy/AdvReac Type Severity Reaction Status Date / Time Sulfa (Sulfonamide Allergy Intermediate Hives Verified 05/14/23 15:14 Antibiotics) Objective <Constancejed Medelson - Last Filed: 05/26/23 15:19> Labs 05/26/23 10:38 05/26/23 10:40 Labs: Laboratory Results - last 24 hr 05/26/23 05/26/23 05/26/23 10:38 10:40 10:40 WBC 10.5 RBC 3.98 L Hgb 12.7 Hct 36.4 MCV 91.6 MCH 31.9 MCHC 34.8 RDW 13.8 Plt Count 191 Neut % (Auto) 66.7 Lymph % (Auto) 25.0 [place] % (Auto) 7.3 Eos % (Auto) 0.5 L Baso % (Auto) 0.5 Neut # (Auto) 7000 Lymph # (Auto) 2600 [place] # (Auto) 800 Eos # (Auto) 100 Baso # (Auto) 100 Sodium 133 L Potassium 3.7 Chloride 107 Carbon Dioxide 21 L BUN 8 Creatinine 0.48 L Estimated GFR > 60 BUN/Creatinine Ratio 16.7 Glucose 88 Calcium 8.8 Total Bilirubin 0.3 AST 21 ALT 13 Alkaline Phosphatase 167 H Total Protein 6.5 Albumin 3.5 Globulin 3.0 Albumin/Globulin Ratio 1.2 U Random Total Protein Urine Creatinine Protein/Creatinin Ratio Blood Type O Positive Antibody Screen Negative 05/26/23 11:30 WBC RBC Hgb Hct MCV MCH MCHC RDW Plt Count Neut % (Auto) Lymph % (Auto) [place] % (Auto) Eos % (Auto) Baso % (Auto) Neut # (Auto) Lymph # (Auto) [place] # (Auto) Eos # (Auto) Baso # (Auto) Sodium Potassium Chloride Carbon Dioxide BUN Creatinine Estimated GFR BUN/Creatinine Ratio Glucose Calcium Total Bilirubin AST ALT Alkaline Phosphatase Total Protein Albumin Globulin Albumin/Globulin Ratio U Random Total Protein 15 H Urine Creatinine 24.7 Protein/Creatinin Ratio 0.60 Blood Type Antibody Screen Assessment and Plan <Constance Cabello - Last Filed: 05/26/23 15:19> Assessment and Plan Assessment and Plan narrative: Liana is a 32 year old female, , who presents today for induction at 37wk3d due to gestational hypertension. Contractions were induced with pitocin and a manual amniotomy was performed. She is progressing well. Expecting straightforward vaginal delivery. <Merlene Barroso MD - Last Filed: 05/26/23 16:23> Assessment and Plan Assessment and Plan narrative: Liana is a 32 year old female, , who presents today for induction at 37wk3d due to gestational hypertension, now pre-eclampsia without severe features based on pr/cr obtained today. Contractions were induced with pitocin and a manual amniotomy was performed after informed consent with production of clear fluid. She is progressing well. GBS negative, Rh positive. - Expectant management, anticipate - FHT reassuring - GBS negative, no prophylaxis indicated - Epidural for pain control when desired
--- NOTE | 2023-05-26 14:03 | PM.OBDS.1 ---
Discharge Providers Provider Date of admission: 05/26/23 09:55 Primary care physician: Tung aCi MD Discharge provider: Constance Cabello Summary Time Spent with Patient Time attestation: Total time spent providing and/or coordinating discharge services: Objective Labs 05/26/23 10:38 05/26/23 10:40 Labs: Laboratory Results - last 24 hr 05/26/23 05/26/23 05/26/23 10:38 10:40 10:40 WBC 10.5 RBC 3.98 L Hgb 12.7 Hct 36.4 MCV 91.6 MCH 31.9 MCHC 34.8 RDW 13.8 Plt Count 191 Neut % (Auto) 66.7 Lymph % (Auto) 25.0 [place] % (Auto) 7.3 Eos % (Auto) 0.5 L Baso % (Auto) 0.5 Neut # (Auto) 7000 Lymph # (Auto) 2600 [place] # (Auto) 800 Eos # (Auto) 100 Baso # (Auto) 100 Sodium 133 L Potassium 3.7 Chloride 107 Carbon Dioxide 21 L BUN 8 Creatinine 0.48 L Estimated GFR > 60 BUN/Creatinine Ratio 16.7 Glucose 88 Calcium 8.8 Total Bilirubin 0.3 AST 21 ALT 13 Alkaline Phosphatase 167 H Total Protein 6.5 Albumin 3.5 Globulin 3.0 Albumin/Globulin Ratio 1.2 U Random Total Protein Urine Creatinine Protein/Creatinin Ratio Blood Type O Positive Antibody Screen Negative 05/26/23 11:30 WBC RBC Hgb Hct MCV MCH MCHC RDW Plt Count Neut % (Auto) Lymph % (Auto) [place] % (Auto) Eos % (Auto) Baso % (Auto) Neut # (Auto) Lymph # (Auto) [place] # (Auto) Eos # (Auto) Baso # (Auto) Sodium Potassium Chloride Carbon Dioxide BUN Creatinine Estimated GFR BUN/Creatinine Ratio Glucose Calcium Total Bilirubin AST ALT Alkaline Phosphatase Total Protein Albumin Globulin Albumin/Globulin Ratio U Random Total Protein 15 H Urine Creatinine 24.7 Protein/Creatinin Ratio 0.60 Blood Type Antibody Screen Discharge Plan Discharge Plan Patient Disposition: Home Discharge orders & Medications Prescriptions: No Action nifedipine 30 mg tablet extended release 30 mg PO BID Qty: 60 2RF Complete 1 tab PO DAILY lansoprazole 30 mg capsule,delayed release(DR/EC) 30 mg PO BID Discharge Data Primary Care Provider: Tung Cai Attending Provider: Merlene Barroso
[2023-05-26 14:37] VITALS: BP 94/60
--- NOTE | 2023-05-26 16:23 | PM.OBPRVD ---
Events: Induced HTN Labor & Delivery Delivery date: 05/26/23 Induction method: per pitocin protocol Delivery augmentation: rupture of membranes Delivery monitor: external FHT and external uterine Route of delivery: L&D Laceration Description: Perineal - 1st Degree Delivery repair: chromic Quantitative Blood Loss: 200 Anesthesia Type: None Complications: None Narrative: PROCEDURE: at 37w3d presented for IOL for gestational HTN, now pre-eclampsia without severe features and was admitted to Labor and Delivery. The patient progressed through the 1st stage over 2 hours. ROM occured at 13:04 with clear fluid. Pain was controlled with natural methods. The patient progressed through the 2nd stage over 1 hours and delivered a viable male with APGARs 9/9 at 15:49 via without complications. Nuchal cord x1 was reduced at the perineum. The cord was cut and clamped after it stopped pulsating. The placenta delivered with gentle cord traction, and appeared complete. The perineum and vagina were inspected with 1st degree laceration repaired with 3-O Chromic for hemostasis. Needle and sponge counts were correct.? The vagina was inspected and no items were left in situ. Liana was doing well with Adalberto, her and her at bedside. PREPROCEDURE DIAGNOSIS: Intrauterine at 37w3d Pre-eclampsia without severe features GBS negative RH positive POSTPROCEDURE DIAGNOSIS: Intrauterine at 37w3d, delivered Same as preprocedure [place] Baby 1: Infant gender: Male Presentation: vertex Position: Left Occiput Anterior Placenta delivery description: Spontaneous Cord Vessel Description: 3 Vessels and Nuchal Cord (x1 reduced at the perineum) score (1 min): 9 score (5 min): 9 Plan for aftercare: Routine care
[2023-05-26] MEDS: IBUPROFEN 600 MG TABLET PO ×2 (18:33→23:28)
[2023-05-26] MEDS: DERMOPLAST SPRAY 20% 60 ML 1 SPRAY TOP (19:07)
[2023-05-26] MEDS: ACETAMINOPHEN 325 MG TABLET 650 MG PO (23:28)
[2023-05-27] MEDS: IBUPROFEN 600 MG TABLET PO (04:58)
[2023-05-27] MEDS: ACETAMINOPHEN 325 MG TABLET 650 MG PO (04:59)
[2023-05-27] MEDS: DOCUSATE 100 MG CAPSULE PO (08:58)
[2023-05-27] MEDS: PRENATAL VIT,CALC/IRON/FOLIC 1 TABLET 1 TAB PO (08:58)
--- NOTE | 2023-05-27 10:22 | P.DS_ITS ---
Discharge Providers Provider Date of admission: 05/26/23 09:55 Discharge Date: 05/27/23 Primary care physician: Tung Cai MD Consults: 05/27/23 16:57 Consult to Vocational Nurse Routine Comment: Discharge provider: Merlene Barroso MD Summary Hospital Course Date Patient Seen: 05/27/23 Time Patient Seen: 10:23 Diagnoses: Intrauterine at 37w3d Pre-eclampsia without severe features GBS negative RH positive Spontaneous vaginal delivery Hospital Course: The pt presented for IOL due to gestational HTN. At admission, she was noted to have an elevated pr/cr and was diagnosed with pre-eclampsia without severe features. Her BPs remained in acceptable range throughout her hospitalization. The pt was started on pitocin. AROM was performed with clear fluid present. She progressed to complete and had an of a viable baby boy without complications. 1st degree perineal laceration was then repaired for hemostasis. , there were no complications. At the time of discharge she was voiding, ambulating, and passing flatus without difficulty. Her lochia was decreasing appropriately. Her pain was well controlled. She was with good latch. She will f/u in 6 weeks for check. Peripartum Data Delivery Method: Natural Vaginal Laceration Description: Perineal - 1st Degree Episiotomy description: None Procedures: Spontaneous vaginal delivery complications: none 1: Gender: Male Disposition of : home Discharge Diagnosis (1) Pre-eclampsia: Status: Acute (2) (spontaneous vaginal delivery): Status: Acute Time Spent with Patient Time attestation: Total time spent providing and/or coordinating discharge services: Objective Labs 05/26/23 10:38 05/26/23 10:40 Labs: Laboratory Results - last 24 hr 05/26/23 05/26/23 05/26/23 10:38 10:40 10:40 WBC 10.5 RBC 3.98 L Hgb 12.7 Hct 36.4 MCV 91.6 MCH 31.9 MCHC 34.8 RDW 13.8 Plt Count 191 Neut % (Auto) 66.7 Lymph % (Auto) 25.0 [place] % (Auto) 7.3 Eos % (Auto) 0.5 L Baso % (Auto) 0.5 Neut # (Auto) 7000 Lymph # (Auto) 2600 [place] # (Auto) 800 Eos # (Auto) 100 Baso # (Auto) 100 Sodium 133 L Potassium 3.7 Chloride 107 Carbon Dioxide 21 L BUN 8 Creatinine 0.48 L Estimated GFR > 60 BUN/Creatinine Ratio 16.7 Glucose 88 Calcium 8.8 Total Bilirubin 0.3 AST 21 ALT 13 Alkaline Phosphatase 167 H Total Protein 6.5 Albumin 3.5 Globulin 3.0 Albumin/Globulin Ratio 1.2 U Random Total Protein Urine Creatinine Protein/Creatinin Ratio Blood Type O Positive Antibody Screen Negative 05/26/23 11:30 WBC RBC Hgb Hct MCV MCH MCHC RDW Plt Count Neut % (Auto) Lymph % (Auto) [place] % (Auto) Eos % (Auto) Baso % (Auto) Neut # (Auto) Lymph # (Auto) [place] # (Auto) Eos # (Auto) Baso # (Auto) Sodium Potassium Chloride Carbon Dioxide BUN Creatinine Estimated GFR BUN/Creatinine Ratio Glucose Calcium Total Bilirubin AST ALT Alkaline Phosphatase Total Protein Albumin Globulin Albumin/Globulin Ratio U Random Total Protein 15 H Urine Creatinine 24.7 Protein/Creatinin Ratio 0.60 Blood Type Antibody Screen Discharge Plan Discharge Plan Patient Disposition: Home Discharge orders & Medications Prescriptions: Continued Complete 1 tab PO DAILY lansoprazole 30 mg capsule,delayed release(DR/EC) 30 mg PO BID Discontinued nifedipine 30 mg tablet extended release 30 mg PO BID Qty: 60 2RF Follow up/Referrals: Merlene Barroso MD [Physician] - 6 Weeks (Follow up post appt with Dr. Barroso on 07/09/23 @ 1530) Tung Cai MD [Primary Care Provider] - Diet/Activity/Treatments Diet: Diet as Tolerated and Regular Skin/Wound/Dressing Care Report to your healthcare provider any signs of infection, such as:: chills, fever, increased pain and unusual drainage Visit Report/Discharge Packet Instructions: DI for Stand Alone Forms: Discharge: Care, Patient Portal/API, Stroke Signs & Symptoms Discharge Data Primary Care Provider: Tung Cai Discharges patient from system. Discharge Date/Time: 05/27/23 13:00
[2023-05-27 10:57] VITALS: BP 113/71; PULSE 81; RESP 17; TEMP 37.1
[2023-05-27] MEDS: MEASLES,MUMPS,RUBELLA VACC/PF 0.5 ML VIAL SUBCUT (12:54)
== END 2023-05-27 13:00 | disposition home or self-care (01) | DRG 807 ==
PROVIDERS: Admitting Provider Family Medicine; PCP Family Medicine; Referring Provider Family Medicine; Visit Provider Family Medicine
DX: O14.04 Mild to moderate pre-eclampsia, complicating childbirth (principal); Z37.0 Single live birth; Z3A.37 37 weeks gestation of pregnancy; O70.0 First degree perineal laceration during delivery
CPT/HCPCS: 36415; 59050; 59400; 80053; 82570; 84156; 85025; 86850; 86900; 86901; G0379; J2590

== ENCOUNTER → 2023-09-29 09:27 | Outpatient (CLI) | payer OTHER, SELFPAY ==
--- NOTE | 2023-09-29 | DI.US.S_ITS ---
PROCEDURE: US ABDOMEN LIMITED INDICATIONS: INGUINAL LYMPHADENOPATHY TECHNIQUE: Limited ultrasound of the bilateral inguinal region of interest was performed COMPARISON: None FINDINGS: Limited ultrasound of the bilateral inguinal region of interest/palpable regions of concern shows several lymph nodes; on the right side, a 1.4 x 1.1 x 0.9 cm mostly hypoechoic lymph node with expected fatty hilum. On the left, a 2.5 x 1.3 x 1.0 cm lymph node with fatty hilum, lobulated center. A 0.8 x 0.5 x 0.5 cm normal appearing lymph node with fatty hilum also seen. IMPRESSION: All visualized lymph nodes show expected fatty hilum and all measuring less than 1.5 cm in short axis which is still considered normal in size for the inguinal region. However, if strong clinical concern persists, FNA may further evaluate. Dictated by: Jose Elias Kwon M.D. on 09/29/2023 at 18:17 Approved by: Jose Elias Kwon M.D. on 09/29/2023 at 18:25
== END ==
LOC: US 09:28
PROVIDERS: PCP Family Medicine; Referring Provider Registered Nurse; Visit Provider Registered Nurse
DX: R59.0 Localized enlarged lymph nodes (principal)
CPT/HCPCS: 76705

== ENCOUNTER → 2023-11-05 07:46 | Outpatient (CLI) | payer OTHER, SELFPAY ==
--- NOTE | 2023-11-05 07:48 | DI.US.S_ITS ---
PROCEDURE: US ABDOMEN LIMITED INDICATIONS: Localized enlarged lymph nodes TECHNIQUE: Real-time focused scanning was performed of the lower abdomen, with image documentation. COMPARISON: [facility], , US ABDOMEN LIMITED, 09/29/2023, 9:44. FINDINGS: Focused ultrasound examination of lower abdomen/bilateral inguinal region again shows multiple bilateral inguinal lymph nodes. Previously described 2.5 x 1.3 x 1 cm lymph node in left inguinal region of measures 1.9 x 1 x 0.8 cm in size. Previously described 1.4 x 1.1 x 0.9 cm right inguinal lymph no now measures up to 0.7 cm in short axis diameter. IMPRESSION: Interval decrease in size of patient's known bilateral inguinal lymph nodes. No biopsy/FNA is indicated at this time. Clinical and sonographic follow-up is recommended. Dictated by: Walker Baron M.D. on 11/05/2023 at 11:15 Approved by: Walker Baron M.D. on 11/05/2023 at 11:18
== END ==
LOC: US 07:47
PROVIDERS: PCP Family Medicine; Referring Provider Family Medicine; Visit Provider Family Medicine
DX: R59.0 Localized enlarged lymph nodes (principal)
CPT/HCPCS: 76705

== ENCOUNTER → 2024-07-20 07:12 | Outpatient (CLI) | payer OTHER, SELFPAY ==
--- NOTE | 2024-07-20 07:14 | DI.MRI.S_ITS ---
PROCEDURE: MR HEAD/BRAIN WO/W CON INDICATIONS: NEW ONSET HEADACHE TECHNIQUE: Noncontrast axial T1 spin echo, axial T2 fast spin echo, sagittal and axial FLAIR, coronal T2 fast spin echo, axial gradient echo, axial diffusion and ADC through the brain. After the administration of contrast, axial and coronal and sagittal 3D VIBE or T1 spin echo with fat saturation through the brain. COMPARISON: [facility], MR, MR HEAD/BRAIN WO/W CON, 07/11/2018, 16:28. FINDINGS: CSF Spaces: Basal cisterns are patent. No extra-axial fluid collections. Ventricles are normal in size and shape. Brain: No intracranial masses or hemorrhage. [place]/white matter interface is normal. Brainstem appears normal. Diffusion-weighted sequence is unremarkable without evidence of acute infarct. Normal intravascular flow voids are present. Skull and face: Calvarial marrow is normal in signal. Orbits appear normal. Sinuses: Sinuses and mastoids appear clear. IMPRESSION: Unremarkable MRI of the brain with and without contrast. Approved by: Esau Dejesus M.D. on 07/20/2024 at 10:04
== END ==
PROVIDERS: PCP Family Medicine; Referring Provider Family Medicine; Visit Provider Family Medicine
DX: R51.9 Headache, unspecified (principal)
CPT/HCPCS: 70553; A9579

== ENCOUNTER 2025-05-10 09:00 | Outpatient (RCR) | payer OTHER, SELFPAY ==
--- NOTE | 2024-12-20 17:26 | PT.OPPOC ---
Physical, Occupational & Speech Therapy At [facility] Current Diagnoses Stress incontinence (female) (male) (12/20/24) Uterovaginal prolapse, unspecified (12/20/24) Pelvic muscle wasting (12/20/24) Visit Care Team Role Provider Type Tung Cai MD Attending Provider Physician Family Provider Primary Care Provider Referring Provider Specialty: Family Practice Address: [address] [place] [address], [facility] [place], [place], [facility] Email: [email or web address] Plan Of Care PT-OP-B Current Condition Start: 12/20/24 08:13 Freq: Status: Active Protocol: Document 12/20/24 08:15 [facility] (Rec: 12/20/24 08:38 [facility] [id number]) Current Condition History of Current Condition Current Complaints urinary stress incontinence History of Current Condition pt notes after pregnancies she started having leakage issues , then she had a UTI and then recently she felt that she wasn't able to put in a tampon . SHe saw a specialist at and has a bladder prolapse 3 child births vaginal deliveries. she is a year and a half post . Prolapse was graded a 2 for bladder, uterine and rectum pt notes there is days where she can feel the prolapse all day but she defiantly notices the bulge getting worse by the end of the day or if she walks a lot during the day PT-OP-T Assessment and Plan Start: 12/20/24 08:13 Freq: Status: Active Protocol: Document 12/20/24 08:15 [facility] (Rec: 12/20/24 08:38 [facility] [id number]) Physical Therapy Assessment Rehab Potential Rehabilitation Potential Excellent Evaluation Complexity Number of Personal Factors/Comorbidities 0 Number of Body Systems Impaired 1-2 Clinical Presentation at Evaluation Stable Impairments Impairments Activity Tolerance,Pain,Soft Tissue Mobility,Strength Other Impairments pelvic organ prolapse and urinary stress incontinence Goals 3 Impairment pelvic pressure and heaviness from pelvic organ prolapse that is limiting Mara's ability to exercise Edge Setter Goal (LTG) Mara reports a overall reduction in pelvic heaviness and pressure following a pelvic floor strengthening program LTG Duration 12 weeks 2 Impairment Decreased pelvic floor endurance Short Term Goal (STG) Mara is able to sustain a pelvic floor contraction in supine x 10 seconds STG Duration 5 weeks Residential Goal (LTG) Mara is able to sustain a pelvic floor contraction in standing x 5 seconds or better LTG Duration 12 weeks 1 Impairment pelvic floor weakness Short Term Goal (STG) Mara is educated on a pelvic floor strengthening program for improved support of her pelvic organs STG Duration 4 weeks Assessment Summary Assessment Mara is a 34 year old female presenting with pelvic organ prolapse. She is 3 para 3 and is 1.5 years . Pt notes she was evaluated at and was told she had a grade 2 prolapse for bladder, rectum, and uterus. She reports pelvic pressure and heaviness and is limited in her ability to exercise as running and jumping increases her symptoms . She does report urinary stress incontinence with exercise and she does note she needs to wake up to void 2 times at night. With exam Mara presents with pelvic floor weakness in all ruiz of the pelvic floor. She lacks endurance to sustain a pelvic floor contraction more than a few seconds in supine. She presents with grade 2 cystocele, uterine prolapse and rectocele. Mara was started today on pelvic floor strengthening exercises and she tolerated these well. She is a good candidate for PT Physical Therapy Plan Frequency and Duration Frequency of Treatment 1x/Week Duration of treatment (weeks) 12 Plan of Care Start Date 12/20/24 Plan of Care End Date 02/14/25 Plan of Care Dates Plan of Care Start Date 12/20/24 Plan of Care End Date 02/14/25 Electronically Signed by: Krissy Garza, PT 12/26/24 [id number] If you are in agreement with this Plan of Care, please return a signed and dated copy. I have reviewed this Plan of Care and certify that the skilled therapy services above are required to meet the patient?s needs. Physician Signature Date Printed Name and Credentials Clinical Instructor Signature Printed Name and Credentials
--- NOTE | 2024-12-20 17:26 | PT.OIE ---
Current Diagnoses Stress incontinence (female) (male) (12/20/24) Uterovaginal prolapse, unspecified (12/20/24) Pelvic muscle wasting (12/20/24) Past Medical History (Last Updated 01/09/23 @ 20:31 by Mirna Serrano) Anxiety GERD (gastroesophageal reflux disease) labor Past Surgical History (Last Updated 01/09/23 @ 20:31 by Mirna Serrano) Anesthesia H/O endoscopy [place] teeth extracted Visit Care Team Role Provider Type Tung Cai MD Attending Provider Physician Family Provider Primary Care Provider Referring Provider Specialty: Family Practice Address: [address] [place] [address], [facility] Email: [email or web address] Physical Therapy Initial Evaluation PT-OP-A Visit Information Start: 12/20/24 08:13 Freq: Status: Active Protocol: Document 12/20/24 08:15 [facility] (Rec: 12/20/24 08:38 [facility] [id number]) Out-Patient Physical Therapy Visit Information Visit Information Visit Type Initial Evaluation Visit Start Time 08:15 Visit Stop Time 09:00 Visit Number 1 Evaluation Information Evaluation Date 12/20/24 PT-OP-B Current Condition Start: 12/20/24 08:13 Freq: Status: Active Protocol: Document 12/20/24 08:15 [facility] (Rec: 12/20/24 08:38 [facility] [id number]) Current Condition History of Current Condition Current Complaints urinary stress incontinence History of Current Condition pt notes after pregnancies she started having leakage issues , then she had a UTI and then recently she felt that she wasn't able to put in a tampon . SHe saw a specialist at and has a bladder prolapse 3 child births vaginal deliveries. she is a year and a half post . Prolapse was graded a 2 for bladder, uterine and rectum pt notes there is days where she can feel the prolapse all day but she defiantly notices the bulge getting worse by the end of the day or if she walks a lot during the day PT-OP-C Subjective Start: 12/20/24 08:13 Freq: Status: Active Protocol: Document 12/20/24 08:15 [facility] (Rec: 12/20/24 13:34 [facility] [id number]) Patient Questionnaires Pelvic Pain and Urgency/Frequency Patient Symptom Scale Pelvic Pain Score 15 OP-PT Pain Assessment Pain Assessment Grid Paper Pain Assessment Grid Completed Yes Location low back Intensity 3 Scale Used Numeric (0 - 10) PT-OP-I Pelvic Floor Start: 12/20/24 08:13 Freq: Status: Active Protocol: Document 12/20/24 08:15 [facility] (Rec: 12/20/24 13:32 [facility] [id number]) Pelvic Floor Assessment Urine Pelvic Floor Surgery No Urinary Symptoms Pain Other Urinary Symptoms leakage with strong cough or sneeze Leakage Size Small Pelvic Clock Pelvic Clock 12-3 Atrophy Pelvic Clock 3-6 Atrophy Pelvic Clock 6-9 Atrophy Pelvic Clock 9-12 Atrophy Prolapse Cystocele Grade 2 Rectocele Grade 2 Contraction Ability Voluntary Contraction Weak Voluntary Relaxation Weak Manual Muscle Testing Left 1 Manual Muscle Testing Right 2 Manual Muscle Testing Anterior 2 Manual Muscle Testing Posterior 2 Muscle Endurance (Seconds) 4 Comments Pelvic Floor Comments pelvic floor weakness with the left lateral wall being the most affected at 1/5 MMT, endurance holds are less than 4 sec PT-OP-Q Treatments Start: 12/20/24 08:13 Freq: Status: Active Protocol: Document 12/20/24 08:15 [facility] (Rec: 12/20/24 13:29 [facility] [id number]) Therapeutic Exercises Supine Exercises pelvic floor islolations with adductor assist Supine Exercise Name used ball between knees as a assisit Side bilateral Reps/Minutes 10 reps holding up to 5 seconds and relaxing 10 seconds Comments 10 reps 2 times per day Self-Care/Home Management Treatment Education Patient Education Home Exercise Program,Pain Management Other Education pt was shown how to use a wedge to elevate her pelvis for pelvic decompression PT-OP-T Assessment and Plan Start: 12/20/24 08:13 Freq: Status: Active Protocol: Document 12/20/24 08:15 [facility] (Rec: 12/20/24 08:38 [facility] [id number]) Physical Therapy Assessment Rehab Potential Rehabilitation Potential Excellent Evaluation Complexity Number of Personal Factors/Comorbidities 0 Number of Body Systems Impaired 1-2 Clinical Presentation at Evaluation Stable Impairments Impairments Activity Tolerance,Pain,Soft Tissue Mobility,Strength Other Impairments pelvic organ prolapse and urinary stress incontinence Goals 3 Impairment pelvic pressure and heaviness from pelvic organ prolapse that is limiting Mara's ability to exercise Freelance Makeup Artist Goal (LTG) Mara reports a overall reduction in pelvic heaviness and pressure following a pelvic floor strengthening program LTG Duration 12 weeks 2 Impairment Decreased pelvic floor endurance Short Term Goal (STG) Mara is able to sustain a pelvic floor contraction in supine x 10 seconds STG Duration 5 weeks Prison Goal (LTG) Mara is able to sustain a pelvic floor contraction in standing x 5 seconds or better LTG Duration 12 weeks 1 Impairment pelvic floor weakness Short Term Goal (STG) Mara is educated on a pelvic floor strengthening program for improved support of her pelvic organs STG Duration 4 weeks Assessment Summary Assessment Mara is a 34 year old female presenting with pelvic organ prolapse. She is 3 para 3 and is 1.5 years . Pt notes she was evaluated at and was told she had a grade 2 prolapse for bladder, rectum, and uterus. She reports pelvic pressure and heaviness and is limited in her ability to exercise as running and jumping increases her symptoms . She does report urinary stress incontinence with exercise and she does note she needs to wake up to void 2 times at night. With exam Mara presents with pelvic floor weakness in all ruiz of the pelvic floor. She lacks endurance to sustain a pelvic floor contraction more than a few seconds in supine. She presents with grade 2 cystocele, uterine prolapse and rectocele. Mara was started today on pelvic floor strengthening exercises and she tolerated these well. She is a good candidate for PT Physical Therapy Plan Frequency and Duration Frequency of Treatment 1x/Week Duration of treatment (weeks) 12 Plan of Care Start Date 12/20/24 Plan of Care End Date 02/14/25
--- NOTE | 2024-12-27 12:23 | PT.OTN ---
Current Diagnoses Stress incontinence (female) (male) (12/27/24) Uterovaginal prolapse, unspecified (12/27/24) Pelvic muscle wasting (12/27/24) Physical Therapy Treatment Note PT-OP-A Visit Information Start: 12/20/24 08:13 Freq: Status: Active Protocol: Document 12/27/24 11:35 [facility] (Rec: 12/27/24 12:23 [facility] [id number]) Out-Patient Physical Therapy Visit Information Visit Information Visit Type Treatment Note Visit Start Time 11:30 Visit Stop Time 12:15 Visit Number 2 PT-OP-B Current Condition Start: 12/20/24 08:13 Freq: Status: Active Protocol: Document 12/20/24 08:15 [facility] (Rec: 12/20/24 08:38 [facility] [id number]) Current Condition History of Current Condition Current Complaints urinary stress incontinence History of Current Condition pt notes after pregnancies she started having leakage issues , then she had a UTI and then recently she felt that she wasn't able to put in a tampon . SHe saw a specialist at and has a bladder prolapse 3 child births vaginal deliveries. she is a year and a half post . Prolapse was graded a 2 for bladder, uterine and rectum pt notes there is days where she can feel the prolapse all day but she defiantly notices the bulge getting worse by the end of the day or if she walks a lot during the day PT-OP-C Subjective Start: 12/20/24 08:13 Freq: Status: Active Protocol: Document 12/27/24 11:35 [facility] (Rec: 12/27/24 12:23 [facility] [id number]) OP-PT Subjective Patient Comments Patient Comments pt notes she thinks she has been able to feel her pelvic floor but does feel that by the end she feels like it is a lot of work. PT-OP-I Pelvic Floor Start: 12/20/24 08:13 Freq: Status: Active Protocol: Document 12/20/24 08:15 [facility] (Rec: 12/20/24 13:32 [facility] [id number]) Pelvic Floor Assessment Urine Pelvic Floor Surgery No Urinary Symptoms Pain Other Urinary Symptoms leakage with strong cough or sneeze Leakage Size Small Pelvic Clock Pelvic Clock 12-3 Atrophy Pelvic Clock 3-6 Atrophy Pelvic Clock 6-9 Atrophy Pelvic Clock 9-12 Atrophy Prolapse Cystocele Grade 2 Rectocele Grade 2 Contraction Ability Voluntary Contraction Weak Voluntary Relaxation Weak Manual Muscle Testing Left 1 Manual Muscle Testing Right 2 Manual Muscle Testing Anterior 2 Manual Muscle Testing Posterior 2 Muscle Endurance (Seconds) 4 Comments Pelvic Floor Comments pelvic floor weakness with the left lateral wall being the most affected at 1/5 MMT, endurance holds are less than 4 sec PT-OP-Q Treatments Start: 12/20/24 08:13 Freq: Status: Active Protocol: Document 12/27/24 11:35 [facility] (Rec: 12/27/24 12:23 [facility] [id number]) Therapeutic Exercises Supine Exercises vee pose Supine Exercise Name cues to spread at sitting bones Reps/Minutes hold 1-2 min modified squat stretch Reps/Minutes hold 1-2 minutes hooklying clam shells with resistance Reps/Minutes x 10 reps pelvic floor isolations Supine Exercise Name resting tone 5 uv added isolations to pts HEP Reps/Minutes 10 sec hold and 5 sec rest Comments average 9.4 and max 16.6 pelvic floor islolations with adductor assist Supine Exercise Name 11.7 and 23.6 max Reps/Minutes 10 reps holding up to 5 seconds and relaxing 10 seconds PT-OP-T Assessment and Plan Start: 12/20/24 08:13 Freq: Status: Active Protocol: Document 12/27/24 11:35 [facility] (Rec: 12/27/24 12:23 [facility] [id number]) Physical Therapy Assessment Goals 3 Impairment pelvic pressure and heaviness from pelvic organ prolapse that is limiting Mara's ability to exercise Jail Goal (LTG) Mara reports a overall reduction in pelvic heaviness and pressure following a pelvic floor strengthening program LTG Duration 12 weeks 2 Impairment Decreased pelvic floor endurance Short Term Goal (STG) Mara is able to sustain a pelvic floor contraction in supine x 10 seconds STG Duration 5 weeks Jail Goal (LTG) Mara is able to sustain a pelvic floor contraction in standing x 5 seconds or better LTG Duration 12 weeks 1 Impairment pelvic floor weakness Short Term Goal (STG) Mara is educated on a pelvic floor strengthening program for improved support of her pelvic organs STG Duration 4 weeks Assessment Summary Assessment I started Mara on EMG biofeedback today and she did well with this. Her resting tone was elevated at 5 uv so time was spent working on pelvic floor relaxation as well as contraction. She was able to begin working on isolations of the pelvic floor today and i added in hooklying clam shells to her home program Physical Therapy Plan Frequency and Duration Frequency of Treatment 1x/Week Duration of treatment (weeks) 12 Plan of Care Start Date 12/20/24 Plan of Care End Date 02/14/25 Next Visit Focus/Plan Next Note Type Treatment Note Next Visit Plan review new exercises, start with stretches prior to pelvic floor isolations, if time add in TA isolations in quadruped
--- NOTE | 2025-01-11 16:45 | PT.OTN ---
Current Diagnoses Stress incontinence (female) (male) (01/11/25) Uterovaginal prolapse, unspecified (01/11/25) Pelvic muscle wasting (01/11/25) Physical Therapy Treatment Note PT-OP-A Visit Information Start: 12/20/24 08:13 Freq: Status: Active Protocol: Document 01/11/25 10:44 [facility] (Rec: 01/11/25 11:27 [facility] [id number]) Out-Patient Physical Therapy Visit Information Visit Information Visit Type Treatment Note Visit Start Time 10:45 Visit Stop Time 11:30 Visit Number 3 PT-OP-B Current Condition Start: 12/20/24 08:13 Freq: Status: Active Protocol: Document 12/20/24 08:15 [facility] (Rec: 12/20/24 08:38 [facility] [id number]) Current Condition History of Current Condition Current Complaints urinary stress incontinence History of Current Condition pt notes after pregnancies she started having leakage issues , then she had a UTI and then recently she felt that she wasn't able to put in a tampon . SHe saw a specialist at and has a bladder prolapse 3 child births vaginal deliveries. she is a year and a half post . Prolapse was graded a 2 for bladder, uterine and rectum pt notes there is days where she can feel the prolapse all day but she defiantly notices the bulge getting worse by the end of the day or if she walks a lot during the day PT-OP-C Subjective Start: 12/20/24 08:13 Freq: Status: Active Protocol: Document 01/11/25 10:44 [facility] (Rec: 01/11/25 11:27 [facility] [id number]) OP-PT Subjective Patient Comments Patient Comments pt notes it is getting a little easier, the pressure is getting better and she has only noticed it a couple of times. She is only walking up 1 time per night and she feels like she is emptying her bladder better PT-OP-I Pelvic Floor Start: 12/20/24 08:13 Freq: Status: Active Protocol: Document 12/20/24 08:15 [facility] (Rec: 12/20/24 13:32 [facility] [id number]) Pelvic Floor Assessment Urine Pelvic Floor Surgery No Urinary Symptoms Pain Other Urinary Symptoms leakage with strong cough or sneeze Leakage Size Small Pelvic Clock Pelvic Clock 12-3 Atrophy Pelvic Clock 3-6 Atrophy Pelvic Clock 6-9 Atrophy Pelvic Clock 9-12 Atrophy Prolapse Cystocele Grade 2 Rectocele Grade 2 Contraction Ability Voluntary Contraction Weak Voluntary Relaxation Weak Manual Muscle Testing Left 1 Manual Muscle Testing Right 2 Manual Muscle Testing Anterior 2 Manual Muscle Testing Posterior 2 Muscle Endurance (Seconds) 4 Comments Pelvic Floor Comments pelvic floor weakness with the left lateral wall being the most affected at 1/5 MMT, endurance holds are less than 4 sec PT-OP-Q Treatments Start: 12/20/24 08:13 Freq: Status: Active Protocol: Document 01/11/25 10:44 [facility] (Rec: 01/11/25 11:27 [facility] [id number]) Therapeutic Exercises Supine Exercises piriformis stretch Reps/Minutes hold 1 min Comments each side pelvic floor isolations Reps/Minutes 10 sec hold and 10 sec rest Comments 16.o and max of 27 pelvic floor islolations with adductor assist Supine Exercise Name average 15.8 and max 25.3 Reps/Minutes 10 reps 10 sec hold and 10 sec relax Other Exercises quadruped rock backs Other Exercise Name cues to open up at the sitting bones Reps/Minutes x 10 reps cat cow Reps/Minutes x 10 Self-Care/Home Management Treatment Education Patient Education Home Exercise Program,Pain Management Other Education pt was shown how to use a wedge to elevate her pelvis for pelvic decompression PT-OP-T Assessment and Plan Start: 12/20/24 08:13 Freq: Status: Active Protocol: Document 01/11/25 10:44 [facility] (Rec: 01/11/25 11:27 [facility] [id number]) Physical Therapy Assessment Goals 3 Impairment pelvic pressure and heaviness from pelvic organ prolapse that is limiting Mara's ability to exercise Snf Goal (LTG) Mara reports a overall reduction in pelvic heaviness and pressure following a pelvic floor strengthening program 01/11/25 symptoms are improving and pelvic heaviness is no longer daily but more intermittent, she felt symptoms 2 times last week. LTG Duration 12 weeks 2 Impairment Decreased pelvic floor endurance Short Term Goal (STG) Mara is able to sustain a pelvic floor contraction in supine x 10 seconds STG Duration 5 weeks Animal Sitter Goal (LTG) Mara is able to sustain a pelvic floor contraction in standing x 5 seconds or better LTG Duration 12 weeks 1 Impairment pelvic floor weakness Short Term Goal (STG) Mara is educated on a pelvic floor strengthening program for improved support of her pelvic organs STG Duration 4 weeks Assessment Summary Assessment symptoms are improving and strengthening increasing, resting tone is still difficult, I added on some stretches for the low back as well to do first and pt felt more control with pelvic floor endurance holds today. Physical Therapy Plan Frequency and Duration Frequency of Treatment 1x/Week Duration of treatment (weeks) 12 Plan of Care Start Date 12/20/24 Plan of Care End Date 02/14/25 Next Visit Focus/Plan Next Note Type Treatment Note Next Visit Plan review new exercises, start with stretches prior to pelvic floor isolations, if time add in TA isolations in quadruped
--- NOTE | 2025-01-17 12:25 | PT.OTN ---
Current Diagnoses Stress incontinence (female) (male) (01/17/25) Uterovaginal prolapse, unspecified (01/17/25) Pelvic muscle wasting (01/17/25) Physical Therapy Treatment Note PT-OP-A Visit Information Start: 12/20/24 08:13 Freq: Status: Active Protocol: Document 01/17/25 10:46 [facility] (Rec: 01/17/25 11:32 [facility] [id number]) Out-Patient Physical Therapy Visit Information Visit Information Visit Type Treatment Note Visit Start Time 10:45 Visit Stop Time 11:30 Visit Number 4 PT-OP-B Current Condition Start: 12/20/24 08:13 Freq: Status: Active Protocol: Document 12/20/24 08:15 [facility] (Rec: 12/20/24 08:38 [facility] [id number]) Current Condition History of Current Condition Current Complaints urinary stress incontinence History of Current Condition pt notes after pregnancies she started having leakage issues , then she had a UTI and then recently she felt that she wasn't able to put in a tampon . SHe saw a specialist at and has a bladder prolapse 3 child births vaginal deliveries. she is a year and a half post . Prolapse was graded a 2 for bladder, uterine and rectum pt notes there is days where she can feel the prolapse all day but she defiantly notices the bulge getting worse by the end of the day or if she walks a lot during the day PT-OP-C Subjective Start: 12/20/24 08:13 Freq: Status: Active Protocol: Document 01/17/25 10:46 [facility] (Rec: 01/17/25 11:32 [facility] [id number]) OP-PT Subjective Patient Comments Patient Comments pt notes she can feel the pressure more this week. PT-OP-I Pelvic Floor Start: 12/20/24 08:13 Freq: Status: Active Protocol: Document 12/20/24 08:15 [facility] (Rec: 12/20/24 13:32 [facility] [id number]) Pelvic Floor Assessment Urine Pelvic Floor Surgery No Urinary Symptoms Pain Other Urinary Symptoms leakage with strong cough or sneeze Leakage Size Small Pelvic Clock Pelvic Clock 12-3 Atrophy Pelvic Clock 3-6 Atrophy Pelvic Clock 6-9 Atrophy Pelvic Clock 9-12 Atrophy Prolapse Cystocele Grade 2 Rectocele Grade 2 Contraction Ability Voluntary Contraction Weak Voluntary Relaxation Weak Manual Muscle Testing Left 1 Manual Muscle Testing Right 2 Manual Muscle Testing Anterior 2 Manual Muscle Testing Posterior 2 Muscle Endurance (Seconds) 4 Comments Pelvic Floor Comments pelvic floor weakness with the left lateral wall being the most affected at 1/5 MMT, endurance holds are less than 4 sec PT-OP-Q Treatments Start: 12/20/24 08:13 Freq: Status: Active Protocol: Document 01/17/25 10:46 [facility] (Rec: 01/17/25 11:32 [facility] [id number]) Therapeutic Exercises Supine Exercises templates for coordination and eccentric contron Reps/Minutes x 5 min piriformis stretch Reps/Minutes hold 1 min Comments each side vee pose Supine Exercise Name cues to spread at sitting bones Reps/Minutes hold 1-2 min modified squat stretch Reps/Minutes hold 1-2 minutes pelvic floor isolations Supine Exercise Name able to drop down to a 1.9 uv Comments 13.3 and 24.5 pelvic floor islolations with adductor assist Supine Exercise Name 15 and max of 23 Reps/Minutes 10 reps 10 sec hold and 10 sec relax Prone Exercises cobra pose Reps/Minutes hold 1 min Sidelying Exercises clam shells Reps/Minutes 10 reps each side PT-OP-T Assessment and Plan Start: 12/20/24 08:13 Freq: Status: Active Protocol: Document 01/17/25 12:19 [facility] (Rec: 01/17/25 12:24 [facility] [id number]) Physical Therapy Assessment Assessment Summary Assessment Mara wasn't feeling as good this week. I encouraged stretches when she gets home from her daughters basketball tournament weekends as sitting on the bleachers for a long day can contribute to pelvic pressure. I added in cobra stretch and we progressed to clam shells. She is doing better with pelvic floor relaxation but she really has to focus on relaxing her full body to relax her pelvic floor . I also encouraged getting out to walk without having to push the stroller if she is able to . Physical Therapy Plan Frequency and Duration Frequency of Treatment 1x/Week Duration of treatment (weeks) 12 Plan of Care Start Date 12/20/24 Plan of Care End Date 02/14/25 Therapeutic Interventions Therapeutic Interventions Home Exercise Program,Manual Therapy,Patient/Caregiver Education,Self-Care/Home Management,Therapeutic Exercises Modalities Biofeedback Next Visit Focus/Plan Next Note Type Treatment Note Next Visit Plan review clam shells and stretches, begin working on TA stabilization in quadruped
--- NOTE | 2025-02-01 16:28 | PT.OTN ---
Current Diagnoses Stress incontinence (female) (male) (02/01/25) Uterovaginal prolapse, unspecified (02/01/25) Pelvic muscle wasting (02/01/25) Physical Therapy Treatment Note PT-OP-A Visit Information Start: 12/20/24 08:13 Freq: Status: Active Protocol: Document 02/01/25 11:31 [facility] (Rec: 02/01/25 12:19 [facility] [id number]) Out-Patient Physical Therapy Visit Information Visit Information Visit Type Progress Note Visit Start Time 11:31 Visit Stop Time 12:16 Visit Number 5 Evaluation Information Evaluation Date 12/20/24 PT-OP-B Current Condition Start: 12/20/24 08:13 Freq: Status: Active Protocol: Document 12/20/24 08:15 [facility] (Rec: 12/20/24 08:38 [facility] [id number]) Current Condition History of Current Condition Current Complaints urinary stress incontinence History of Current Condition pt notes after pregnancies she started having leakage issues , then she had a UTI and then recently she felt that she wasn't able to put in a tampon . SHe saw a specialist at and has a bladder prolapse 3 child births vaginal deliveries. she is a year and a half post . Prolapse was graded a 2 for bladder, uterine and rectum pt notes there is days where she can feel the prolapse all day but she defiantly notices the bulge getting worse by the end of the day or if she walks a lot during the day PT-OP-C Subjective Start: 12/20/24 08:13 Freq: Status: Active Protocol: Document 02/01/25 11:31 [facility] (Rec: 02/01/25 12:19 [facility] [id number]) OP-PT Subjective Patient Comments Patient Comments pt notes she can tell her symptoms are a little better, she is not leaking and isn't feeling as much of the pelvic pressure. Mara would like to start returning to her exercise program of biking and running Patient Reported Progress Improving PT-OP-I Pelvic Floor Start: 12/20/24 08:13 Freq: Status: Active Protocol: Document 12/20/24 08:15 [facility] (Rec: 12/20/24 13:32 [facility] [id number]) Pelvic Floor Assessment Urine Pelvic Floor Surgery No Urinary Symptoms Pain Other Urinary Symptoms leakage with strong cough or sneeze Leakage Size Small Pelvic Clock Pelvic Clock 12-3 Atrophy Pelvic Clock 3-6 Atrophy Pelvic Clock 6-9 Atrophy Pelvic Clock 9-12 Atrophy Prolapse Cystocele Grade 2 Rectocele Grade 2 Contraction Ability Voluntary Contraction Weak Voluntary Relaxation Weak Manual Muscle Testing Left 1 Manual Muscle Testing Right 2 Manual Muscle Testing Anterior 2 Manual Muscle Testing Posterior 2 Muscle Endurance (Seconds) 4 Comments Pelvic Floor Comments pelvic floor weakness with the left lateral wall being the most affected at 1/5 MMT, endurance holds are less than 4 sec PT-OP-Q Treatments Start: 12/20/24 08:13 Freq: Status: Active Protocol: Document 02/01/25 11:31 [facility] (Rec: 02/01/25 12:19 [facility] [id number]) Therapeutic Exercises Supine Exercises piriformis stretch Reps/Minutes hold 1 min Comments each side vee pose Supine Exercise Name cues to spread at sitting bones Reps/Minutes hold 1-2 min modified squat stretch Reps/Minutes hold 1-2 minutes hooklying clam shells with resistance Supine Exercise Name switched to clam shells Reps/Minutes 2 pelvic floor isolations Reps/Minutes 10 sec on 10 sec off Comments 16.1 and 26.5 uv pelvic floor islolations with adductor assist Supine Exercise Name 17 25.5 uv Reps/Minutes 10 sec on 10 sec off Prone Exercises cobra pose Reps/Minutes hold 1 min Other Exercises quadruped TA draw Reps/Minutes x 10 reps quadruped rock backs Other Exercise Name cues to open up at the sitting bones Reps/Minutes x 10 reps cat cow Reps/Minutes x 10 Self-Care/Home Management Treatment Education Patient Education Home Exercise Program,Pain Management Other Education pt was shown how to use a wedge to elevate her pelvis for pelvic decompression PT-OP-T Assessment and Plan Start: 12/20/24 08:13 Freq: Status: Active Protocol: Document 02/01/25 11:31 [facility] (Rec: 02/01/25 12:19 [facility] [id number]) Physical Therapy Assessment Rehab Potential Rehabilitation Potential Excellent Evaluation Complexity Number of Personal Factors/Comorbidities 0 Number of Body Systems Impaired 1-2 Clinical Presentation at Evaluation Stable Impairments Impairments Activity Tolerance,Pain,Soft Tissue Mobility,Strength Other Impairments pelvic organ prolapse and urinary stress incontinence Goals 3 Impairment pelvic pressure and heaviness from pelvic organ prolapse that is limiting Mara's ability to exercise Game Bird Farmer Goal (LTG) Mara reports a overall reduction in pelvic heaviness and pressure following a pelvic floor strengthening program 01/11/25 symptoms are improving and pelvic heaviness is no longer daily but more intermittent, she felt symptoms 2 times last week. LTG Duration 12 weeks 2 Impairment Decreased pelvic floor endurance Short Term Goal (STG) Mara is able to sustain a pelvic floor contraction in supine x 10 seconds goal met STG Duration 5 weeks Game Bird Farmer Goal (LTG) Mara is able to sustain a pelvic floor contraction in standing x 5 seconds or better goal not yet met LTG Duration 12 weeks 1 Impairment pelvic floor weakness Short Term Goal (STG) Mara is educated on a pelvic floor strengthening program for improved support of her pelvic organs goal met STG Duration 4 weeks Assessment Summary Assessment Mara reports she is feeling a decrease in pelvic pressure and is noting when she sneezes she doesn't feel she is going to leak, she is still waking up 1 time per night but it later in the am 2 -4. Symptoms of pelvic pressure are reduced. We talked about testing out returning to her pel[employer] bike and light running and see how Mara feels with this. She will make a follow up visit with me in 4 weeks following trying to return to higher exercise levels. Physical Therapy Plan Frequency and Duration Frequency of Treatment 1x/Week Duration of treatment (weeks) 8 Plan of Care Start Date 02/01/25 Plan of Care End Date 03/29/25 Therapeutic Interventions Therapeutic Interventions Home Exercise Program,Manual Therapy,Patient/Caregiver Education,Self-Care/Home Management,Therapeutic Exercises Modalities Biofeedback Next Visit Focus/Plan Next Note Type Treatment Note Next Visit Plan Check in next visit with how Mara did with return to her exercise program, standing pelvic floor exercises and review of HEP
--- NOTE | 2025-02-01 16:28 | PT.OPPOC ---
Physical, Occupational & Speech Therapy At [facility] Current Diagnoses Stress incontinence (female) (male) (02/01/25) Uterovaginal prolapse, unspecified (02/01/25) Pelvic muscle wasting (02/01/25) Visit Care Team Role Provider Type Tung Cai MD Attending Provider Physician Family Provider Primary Care Provider Referring Provider Specialty: Family Practice Address: [address] [place] [address], [facility] [place], [facility] Email: [email or web address] Plan Of Care PT-OP-B Current Condition Start: 12/20/24 08:13 Freq: Status: Active Protocol: Document 12/20/24 08:15 [facility] (Rec: 12/20/24 08:38 [facility] [id number]) Current Condition History of Current Condition Current Complaints urinary stress incontinence History of Current Condition pt notes after pregnancies she started having leakage issues , then she had a UTI and then recently she felt that she wasn't able to put in a tampon . SHe saw a specialist at and has a bladder prolapse 3 child births vaginal deliveries. she is a year and a half post . Prolapse was graded a 2 for bladder, uterine and rectum pt notes there is days where she can feel the prolapse all day but she defiantly notices the bulge getting worse by the end of the day or if she walks a lot during the day PT-OP-T Assessment and Plan Start: 12/20/24 08:13 Freq: Status: Active Protocol: Document 02/01/25 11:31 [facility] (Rec: 02/01/25 12:19 [facility] [id number]) Physical Therapy Assessment Rehab Potential Rehabilitation Potential Excellent Evaluation Complexity Number of Personal Factors/Comorbidities 0 Number of Body Systems Impaired 1-2 Clinical Presentation at Evaluation Stable Impairments Impairments Activity Tolerance,Pain,Soft Tissue Mobility,Strength Other Impairments pelvic organ prolapse and urinary stress incontinence Goals 3 Impairment pelvic pressure and heaviness from pelvic organ prolapse that is limiting Mara's ability to exercise Community Relations Rep Goal (LTG) Mara reports a overall reduction in pelvic heaviness and pressure following a pelvic floor strengthening program 01/11/25 symptoms are improving and pelvic heaviness is no longer daily but more intermittent, she felt symptoms 2 times last week. LTG Duration 12 weeks 2 Impairment Decreased pelvic floor endurance Short Term Goal (STG) Mara is able to sustain a pelvic floor contraction in supine x 10 seconds goal met STG Duration 5 weeks Community Relations Rep Goal (LTG) Mara is able to sustain a pelvic floor contraction in standing x 5 seconds or better goal not yet met LTG Duration 12 weeks 1 Impairment pelvic floor weakness Short Term Goal (STG) Mara is educated on a pelvic floor strengthening program for improved support of her pelvic organs goal met STG Duration 4 weeks Assessment Summary Assessment Mara reports she is feeling a decrease in pelvic pressure and is noting when she sneezes she doesn't feel she is going to leak, she is still waking up 1 time per night but it later in the am 2 -4. Symptoms of pelvic pressure are reduced. We talked about testing out returning to her [employer] bike and light running and see how Mara feels with this. She will make a follow up visit with me in 4 weeks following trying to return to higher exercise levels. Physical Therapy Plan Frequency and Duration Frequency of Treatment 1x/Week Duration of treatment (weeks) 8 Plan of Care Start Date 02/01/25 Plan of Care End Date 03/29/25 Therapeutic Interventions Therapeutic Interventions Home Exercise Program,Manual Therapy,Patient/Caregiver Education,Self-Care/Home Management,Therapeutic Exercises Modalities Biofeedback Next Visit Focus/Plan Next Note Type Treatment Note Next Visit Plan Check in next visit with how Mara did with return to her exercise program, standing pelvic floor exercises and review of HEP Plan of Care Dates Plan of Care Start Date 02/01/25 Plan of Care End Date 03/29/25 Electronically Signed by: Krissy Garza, PT 02/01/25 [id number] If you are in agreement with this Plan of Care, please return a signed and dated copy. I have reviewed this Plan of Care and certify that the skilled therapy services above are required to meet the patient?s needs. Physician Signature Date Printed Name and Credentials Clinical Instructor Signature Printed Name and Credentials
--- NOTE | 2025-04-17 09:33 | PT.OPPOC ---
Physical, Occupational & Speech Therapy At [facility] Current Diagnoses Stress incontinence (female) (male) (02/01/25) Uterovaginal prolapse, unspecified (02/01/25) Pelvic muscle wasting (02/01/25) Visit Care Team Role Provider Type Tung Cai MD Attending Provider Physician Family Provider Primary Care Provider Referring Provider Specialty: Family Practice Address: [address] [place] [address], [facility] [place], [facility] Email: [email or web address] Plan Of Care PT-OP-A Visit Information Start: 12/20/24 08:13 Freq: Status: Active Protocol: Document 02/01/25 11:31 [facility] (Rec: 02/01/25 12:19 [facility] [id number]) Out-Patient Physical Therapy Visit Information Visit Information Visit Type Progress Note Visit Start Time 11:31 Visit Stop Time 12:16 Visit Number 5 Evaluation Information Evaluation Date 12/20/24 PT-OP-B Current Condition Start: 12/20/24 08:13 Freq: Status: Active Protocol: Document 12/20/24 08:15 [facility] (Rec: 12/20/24 08:38 [facility] [id number]) Current Condition History of Current Condition Current Complaints urinary stress incontinence History of Current pt notes after pregnancies she started having leakage Condition issues, then she had a UTI and then recently she felt that she wasn't able to put in a tampon. SHe saw a specialist at and has a bladder prolapse 3 child births vaginal deliveries. she is a year and a half post . Prolapse was graded a 2 for bladder, uterine and rectum pt notes there is days where she can feel the prolapse all day but she defiantly notices the bulge getting worse by the end of the day or if she walks a lot during the day PT-OP-C Subjective Start: 12/20/24 08:13 Freq: Status: Active Protocol: Document 02/01/25 11:31 [facility] (Rec: 02/01/25 12:19 [facility] [id number]) OP-PT Subjective Patient Comments Patient Comments pt notes she can tell her symptoms are a little better, she is not leaking and isn't feeling as much of the pelvic pressure. Mara would like to start returning to her exercise program of biking and running Patient Reported Improving Progress PT-OP-I Pelvic Floor Start: 12/20/24 08:13 Freq: Status: Active Protocol: Document 12/20/24 08:15 [facility] (Rec: 12/20/24 13:32 [facility] [id number]) Pelvic Floor Assessment Urine Pelvic Floor Surgery No Urinary Symptoms Pain Other Urinary leakage with strong cough or sneeze Symptoms Leakage Size Small Pelvic Clock Pelvic Clock 12-3 Atrophy Pelvic Clock 3-6 Atrophy Pelvic Clock 6-9 Atrophy Pelvic Clock 9-12 Atrophy Prolapse Cystocele Grade 2 Rectocele Grade 2 Contraction Ability Voluntary Weak Contraction Voluntary Relaxation Weak Manual Muscle 1 Testing Left Manual Muscle 2 Testing Right Manual Muscle 2 Testing Anterior Manual Muscle 2 Testing Posterior Muscle Endurance ( 4 Seconds) Comments Pelvic Floor pelvic floor weakness with the left lateral wall being Comments the most affected at 1/5 MMT, endurance holds are less than 4 sec PT-OP-Q Treatments Start: 12/20/24 08:13 Freq: Status: Active Protocol: Document 02/01/25 11:31 [facility] (Rec: 02/01/25 12:19 [facility] [id number]) Therapeutic Exercises Supine Exercises piriformis stretch Reps/Minutes hold 1 min Comments each side vee pose Supine Exercise Name cues to spread at sitting bones Reps/Minutes hold 1-2 min modified squat stretch Reps/Minutes hold 1-2 minutes hooklying clam shells with resistance Supine Exercise Name switched to clam shells Reps/Minutes 2 pelvic floor isolations Reps/Minutes 10 sec on 10 sec off Comments 16.1 and 26.5 uv pelvic floor islolations with adductor assist Supine Exercise Name 17 25.5 uv Reps/Minutes 10 sec on 10 sec off Prone Exercises cobra pose Reps/Minutes hold 1 min Other Exercises quadruped TA draw Reps/Minutes x 10 reps quadruped rock backs Other Exercise Name cues to open up at the sitting bones Reps/Minutes x 10 reps cat cow Reps/Minutes x 10 Self-Care/Home Management Treatment Education Patient Education Home Exercise Program,Pain Management Other Education pt was shown how to use a wedge to elevate her pelvis for pelvic decompression PT-OP-T Assessment and Plan Start: 12/20/24 08:13 Freq: Status: Active Protocol: Document 04/17/25 09:31 [facility] (Rec: 04/17/25 09:33 [facility] [id number]) Physical Therapy Assessment Goals 3 Impairment pelvic pressure and heaviness from pelvic organ prolapse that is limiting Mara's ability to exercise Nursing Home Goal (LTG) Mara reports a overall reduction in pelvic heaviness and pressure following a pelvic floor strengthening program 01/11/25 symptoms are improving and pelvic heaviness is no longer daily but more intermittent, she felt symptoms 2 times last week. LTG Duration 12 weeks 2 Impairment Decreased pelvic floor endurance Short Term Goal (STG Mara is able to sustain a pelvic floor contraction ) in supine x 10 seconds goal met STG Duration 5 weeks Service Desk Director Goal (LTG) Mara is able to sustain a pelvic floor contraction in standing x 5 seconds or better goal not yet met LTG Duration 12 weeks 1 Impairment pelvic floor weakness Short Term Goal (STG Mara is educated on a pelvic floor strengthening ) program for improved support of her pelvic organs goal met STG Duration 4 weeks Assessment Summary Assessment As of her last visit 02/01/25 Mara was noting a reduction of symptoms and feeling a decrease in pelvic pressure. She has been working on her own since then and has a recheck 05/01/24. I am sending this new plan of care to extend her dates for her plan of care to be able to continue PT. Physical Therapy Plan Frequency and Duration Frequency of 1x/Week Treatment Duration of 8 treatment (weeks) Plan of Care Start 04/17/25 Date Plan of Care End 06/12/25 Date Plan of Care Dates Plan of Care Start Date 04/17/25 Plan of Care End Date 06/12/25 Electronically Signed by: Krsisy Garza, PT 04/17/25 0933 If you are in agreement with this Plan of Care, please return a signed and dated copy. I have reviewed this Plan of Care and certify that the skilled therapy services above are required to meet the patient?s needs. Physician Signature Date Printed Name and Credentials Clinical Instructor Signature Printed Name and Credentials
--- NOTE | 2025-05-10 16:41 | PT.OTN ---
Current Diagnoses Stress incontinence (female) (male) (05/10/25) Uterovaginal prolapse, unspecified (05/10/25) Pelvic muscle wasting (05/10/25) Physical Therapy Treatment Note PT-OP-A Visit Information Start: 12/20/24 08:13 Freq: Status: Active Protocol: Document 02/01/25 11:31 [facility] (Rec: 02/01/25 12:19 [facility] [id number]) Out-Patient Physical Therapy Visit Information Visit Information Visit Type Progress Note Visit Start Time 11:31 Visit Stop Time 12:16 Visit Number 5 Evaluation Information Evaluation Date 12/20/24 PT-OP-B Current Condition Start: 12/20/24 08:13 Freq: Status: Active Protocol: Document 12/20/24 08:15 [facility] (Rec: 12/20/24 08:38 [facility] [id number]) Current Condition History of Current Condition Current Complaints urinary stress incontinence History of Current pt notes after pregnancies she started having leakage Condition issues, then she had a UTI and then recently she felt that she wasn't able to put in a tampon. SHe saw a specialist at and has a bladder prolapse 3 child births vaginal deliveries. she is a year and a half post . Prolapse was graded a 2 for bladder, uterine and rectum pt notes there is days where she can feel the prolapse all day but she defiantly notices the bulge getting worse by the end of the day or if she walks a lot during the day PT-OP-C Subjective Start: 12/20/24 08:13 Freq: Status: Active Protocol: Document 05/10/25 09:03 [facility] (Rec: 05/10/25 09:48 [facility] [id number]) OP-PT Subjective Patient Comments Patient Comments pt notes she has been working out some times are good and sometimes are not so good. She has been doing a lot of lower weight and pilates and baree She has a second and third opinion in June she is waking up 1 time per night to void. PT-OP-I Pelvic Floor Start: 12/20/24 08:13 Freq: Status: Active Protocol: Document 12/20/24 08:15 [facility] (Rec: 12/20/24 13:32 [facility] [id number]) Pelvic Floor Assessment Urine Pelvic Floor Surgery No Urinary Symptoms Pain Other Urinary leakage with strong cough or sneeze Symptoms Leakage Size Small Pelvic Clock Pelvic Clock 12-3 Atrophy Pelvic Clock 3-6 Atrophy Pelvic Clock 6-9 Atrophy Pelvic Clock 9-12 Atrophy Prolapse Cystocele Grade 2 Rectocele Grade 2 Contraction Ability Voluntary Weak Contraction Voluntary Relaxation Weak Manual Muscle 1 Testing Left Manual Muscle 2 Testing Right Manual Muscle 2 Testing Anterior Manual Muscle 2 Testing Posterior Muscle Endurance ( 4 Seconds) Comments Pelvic Floor pelvic floor weakness with the left lateral wall being Comments the most affected at 1/5 MMT, endurance holds are less than 4 sec PT-OP-Q Treatments Start: 12/20/24 08:13 Freq: Status: Active Protocol: Document 05/10/25 09:03 [facility] (Rec: 05/10/25 09:48 [facility] [id number]) Therapeutic Exercises Supine Exercises pelvic floor isolations Reps/Minutes 10 sec on 10 sec off Comments 16.5 and max of 27 pelvic floor islolations with adductor assist Supine Exercise Name 17 25.5 uv Reps/Minutes 10 sec on 10 sec off Sidelying Exercises clam shells Reps/Minutes 10 reps each side Self-Care/Home Management Treatment Education Patient Education Home Exercise Program,Pain Management Other Education discussion of vaginal estrogen cream and pessary use, Mara was given information on the poise impressas for temporary use with exercise PT-OP-T Assessment and Plan Start: 12/20/24 08:13 Freq: Status: Active Protocol: Document 05/10/25 09:03 [facility] (Rec: 05/10/25 09:48 [facility] [id number]) Physical Therapy Assessment Goals 3 Impairment pelvic pressure and heaviness from pelvic organ prolapse that is limiting Mara's ability to exercise [facility] Goal (LTG) Mara reports a overall reduction in pelvic heaviness and pressure following a pelvic floor strengthening program 05/10/25 Mara notes overall symptoms are better and she has returned to exercise. She does feel at times she will feel pelvic pressure and then it will calm down again. It is no longer constant LTG Duration 12 weeks 2 Impairment Decreased pelvic floor endurance Short Term Goal (STG Mara is able to sustain a pelvic floor contraction ) in supine x 10 seconds goal met STG Duration 5 weeks Patient Resource Coordinator Goal (LTG) Mara is able to sustain a pelvic floor contraction in standing x 5 seconds or better good progress LTG Duration 12 weeks 1 Impairment pelvic floor weakness Short Term Goal (STG Mara is educated on a pelvic floor strengthening ) program for improved support of her pelvic organs goal met STG Duration 4 weeks Assessment Summary Assessment Mara has not been seen since02/01/25. She is been able to return to pilates and bar class and light weights. Overall she is doing much better with symptoms but does still find she has days where she will experience pelvic pressure. She is considering a pessary and also seeking a second opinion for surgery. At this point she is independent with her HEP and will be discharged Physical Therapy Plan Frequency and Duration Frequency of 1x/Week Treatment Duration of 8 treatment (weeks) Plan of Care Start 04/17/25 Date Plan of Care End 06/12/25 Date Discharge Physical Therapy Discharge Reasons Goals Met Discharge Comments Mara has made good progress towards her goal and shows overall improved strength of her pelvic floor. She will be discharged at this time
== END 2025-05-14 09:42 | disposition home or self-care (01) ==
LOC: PHYS 09:00
PROVIDERS: Family Provider Family Medicine; PCP Family Medicine; Referring Provider Family Medicine; Visit Provider Family Medicine
DX: N39.3 Stress incontinence (female) (male) (principal); N81.4 Uterovaginal prolapse, unspecified; N81.84 Pelvic muscle wasting
CPT/HCPCS: 97110; 97161; 97535